=== PATIENT | male | born 1985 | race Caucasian/White ===

== ENCOUNTER 2016-09-30 18:16 | Emergency (ER) | payer BC ==
[~2016-09-30] VITALS: Ht 193 cm; Wt 108.1 kg
[2016-09-30] MEDS ORDERED: ONDANSETRON 2MG/ML, 2ML IVPush ONE (18:30)
[2016-09-30] MEDS ORDERED: SODIUM CHLORIDE FLUSH 10ML SYR IVF ONE (18:30)
[2016-09-30] MEDS ORDERED: SODIUM CHLORIDE 0.9% 1,000ML IVBOLUS ONE (18:30)
[2016-09-30] MEDS ORDERED: EPINEPHRINE 1 MG/ML, 1ML ONE (18:52)
[2016-09-30] MEDS ORDERED: FAMOTIDINE 20 MG/2 ML IVPush ONE (19:00)
[2016-09-30] MEDS ORDERED: MORPHINE SULFATE 4 MG/ML, 1ML IVPush PRN (19:00)
[2016-09-30] MEDS ORDERED: EPINEPHRINE 1 MG/ML, 1ML SQ ONE (19:00)
[2016-09-30] MEDS ORDERED: DIPHENHYDRAMINE 50 MG/ML, 1ML IVPush ONE (19:00)
[2016-09-30] MEDS ORDERED: methylPREDNISolone SOD SUCC 125 MG/2 ML IVPush ONE (19:00)
[2016-09-30] MEDS ORDERED: ONDANSETRON 2MG/ML, 2ML ONE (19:06)
[2016-09-30] MEDS ORDERED: DIPHENHYDRAMINE 50 MG/ML, 1ML ONE (19:06)
[2016-09-30] MEDS ORDERED: FAMOTIDINE 20 MG/2 ML ONE (19:06)
[2016-09-30] MEDS ORDERED: methylPREDNISolone SOD SUCC 125 MG/2 ML ONE (19:06)
[2016-09-30 19:14] LABS: BLOOD UREA NITROGEN 15 mg/dL (7-18)
[2016-09-30 19:17] LABS: ASPARTATE AMINO TRANSFERASE 40 U/L (15-37)
[2016-09-30] MEDS ORDERED: MIRT30TA PO (19:22)
[2016-09-30] MEDS ORDERED: VENL150C PO (19:22)
[2016-09-30] MEDS ORDERED: CLON2TAB PO (19:22)
[2016-09-30] MEDS ORDERED: TIZA4CAP2 PO (19:22)
[2016-09-30] MEDS ORDERED: IBUP800T PO (19:23)
[2016-09-30] MEDS ORDERED: MORPHINE SULFATE 4 MG/ML, 1ML ONE (19:55)
[2016-09-30] MEDS ORDERED: METOCLOPRAMIDE 5 MG/ML, 2ML ONE (20:11)
[2016-09-30] MEDS ORDERED: METOCLOPRAMIDE 5 MG/ML, 2ML IVPush ONE (20:30)
[2016-09-30] MEDS ORDERED: OMNIPAQUE 350 MG/ML, 100ML BOTTLE ONE (20:39)
[2016-09-30 21:58] VITALS: BP 165/98
== END 2016-09-30 22:01 | disposition home or self-care (01) ==
LOC: ED 21:07
DX: R10.32 Left lower quadrant pain (principal); L20.9 Atopic dermatitis, unspecified; Z90.49 Acquired absence of other specified parts of digestive tract; Z90.89 Acquired absence of other organs; Z88.8 Allergy status to other drugs, medicaments and biological substances; Z88.6 Allergy status to analgesic agent
CPT/HCPCS: 36415; 74020; 74177; 80053; 81003; 83690; 85025; 96361; 96372; 96374; 96375; 99285; J0171; J1200; J2405; J2765; J2930; J7030; Q9967; S0028

== ENCOUNTER 2016-12-11 14:29 | Emergency (ER) | payer BC, OTHER ==
[~2016-12-11] VITALS: Ht 193 cm; Wt 105.4 kg
[~2016-12-11 14:29] MED LIST: CLON2TAB PO; IBUP800T PO; MIRT30TA PO; TIZA4CAP2 PO; VENL150C PO
[2016-12-11] MEDS ORDERED: LIDOCAINE 1%, 20ML ONE (15:24)
[2016-12-11] MEDS ORDERED: LIDOCAINE 1%, 20ML SQ ONE (15:30)
[2016-12-11] MEDS ORDERED: SODIUM CHLORIDE 0.9% 1,000ML IVBOLUS ONE (15:30)
[2016-12-11] MEDS ORDERED: SODIUM CHLORIDE FLUSH 10ML SYR IVF ONE (15:30)
[2016-12-11 15:39] LABS: HEMATOCRIT 46.6 % (39.2-51.8); HEMOGLOBIN 15.3 g/dL (13.7-18.0); WHITE BLOOD COUNT 6.6 x10^3/uL (3.4-10)
[2016-12-11 15:45] LABS: BLOOD UREA NITROGEN 12 mg/dL (7-18)
[2016-12-11] MEDS ORDERED: BACITRACIN ZINC OINT 500U/GM, 0.9 GM ONE (17:17)
[2016-12-11 17:37] VITALS: BP 123/80
== END 2016-12-11 17:40 | disposition home or self-care (01) ==
LOC: ED 16:06
DX: S01.81XA Laceration without foreign body of other part of head, initial encounter (principal); S81.011A Laceration without foreign body, right knee, initial encounter; E86.0 Dehydration; A08.4 Viral intestinal infection, unspecified; R55 Syncope and collapse; Z90.49 Acquired absence of other specified parts of digestive tract; Z88.8 Allergy status to other drugs, medicaments and biological substances; Z88.5 Allergy status to narcotic agent; X58.XXXA Exposure to other specified factors, initial encounter; Y93.89 Activity, other specified; Y92.89 Other specified places as the place of occurrence of the external cause; Y99.8 Other external cause status
CPT/HCPCS: 12031; 36415; 71010; 73564; 73610; 80048; 82040; 82962; 85025; 93005; 96360; 99285; J7030

== ENCOUNTER 2016-12-16 13:45 | Emergency (ER) | payer OTHER ==
[~2016-12-16] VITALS: Ht 193 cm; Wt 105.8 kg
[2016-12-16] MEDS ORDERED: EPINEPHRINE 1 MG/ML, 1ML ONE (13:59)
[2016-12-16] MEDS ORDERED: DIPHENHYDRAMINE 50 MG/ML, 1ML ONE (14:12)
[2016-12-16] MEDS ORDERED: SODIUM CHLORIDE FLUSH 10ML SYR IVF ONE (14:30)
[2016-12-16] MEDS ORDERED: DIPHENHYDRAMINE 50 MG/ML, 1ML IVPush ONE (14:30)
[2016-12-16 15:29] VITALS: BP 134/99
== END 2016-12-16 16:02 | disposition home or self-care (01) ==
LOC: ED 14:52
DX: T78.40XA Allergy, unspecified, initial encounter (principal); Z90.49 Acquired absence of other specified parts of digestive tract
CPT/HCPCS: 96374; 99284; J1200

== ENCOUNTER 2017-07-05 12:12 | Inpatient (IN) | payer BC ==
[~2017-07-05] VITALS: Ht 193 cm; Wt 112.3 kg
[~2017-07-05 12:12] MED LIST changes: +IBUP-1223 PO; -IBUP800T PO
[2017-07-05] MEDS ORDERED: DEXAMETHASONE 4 MG/ML, 1ML IVPush ONE (14:30)
[2017-07-05] MEDS ORDERED: ACETAMINOPHEN 500 MG TABLET PO ONE (14:30)
[2017-07-05] MEDS ORDERED: ALBUTEROL/IPRATROPIUM 2.5MG/0.5MG, 3 ML NPPB ONE (14:30)
[2017-07-05] MEDS ORDERED: SODIUM CHLORIDE 0.9% 1,000ML IVBOLUS ONE (14:30)
[2017-07-05] MEDS ORDERED: ACETAMINOPHEN 500 MG TABLET ONE (14:35)
[2017-07-05] MEDS ORDERED: DEXAMETHASONE 4 MG/ML, 5ML ONE (14:36)
[2017-07-05 15:02] LABS: BASOPHILS # (AUTO) 0.02 x10^3/uL (0-0.1); BASOPHILS % (AUTO) 0 % (0-1); EOSINOPHILS # (AUTO) 0.22 x10^3/uL (0-0.4); EOSINOPHILS % (AUTO) 3 % (1-7); LYMPHOCYTES # (AUTO) 0.85 x10^3/uL (1-3.4); LYMPHOCYTES % (AUTO) 12 % (22-44); MD NO; MEAN CORPUSCULAR HEMOGLOBIN 29.4 pg (27.5-34.5); MEAN CORPUSCULAR HGB CONC 34.2 g/dL (33.2-36.2); MEAN CORPUSCULAR VOLUME 86.1 fL (81-97); MEAN PLATELET VOLUME 7.7 fL (7.4-10.4); MONOCYTES # (AUTO) 0.62 x10^3/uL (0.2-0.8); MONOCYTES % (AUTO) 9 % (2-9); NEUTROPHILS # (AUTO) 5.38 x10^3/uL (1.8-6.8); NEUTROPHILS % (AUTO) 76 % (42-75); PLATELET COUNT 274 x10^3/uL (130-400); RED BLOOD COUNT 5.05 x10^6/uL (4.38-5.82); RED CELL DISTRIBUTION WIDTH 13.1 % (9.4-14.8)
[2017-07-05] MEDS ORDERED: ALBUTEROL/IPRATROPIUM 2.5MG/0.5MG, 3 ML ONE (15:06)
[2017-07-05 15:14] LABS: ANION GAP 8 mmol/L (5-15); CALCIUM 8.8 mg/dL (8.5-10.1); CHLORIDE 105 mmol/L (98-107)
[2017-07-05 15:15] LABS: CREATININE 1.12 mg/dL (0.7-1.3)
[2017-07-05 16:41] LABS: RAPID INFLUENZA A Negative (Negative); RAPID INFLUENZA B Negative (Negative)
[2017-07-05] MEDS ORDERED: TIZA6CAP PO (16:43)
[2017-07-05] MEDS ORDERED: OXYC-307 PO (16:43)
[2017-07-05] MEDS ORDERED: hydrALAzine 20 MG/ML, 1ML IVPush PRN (17:30)
[2017-07-05] MEDS ORDERED: TEMAZEPAM 15 MG CAPSULE PO PRN (17:30)
[2017-07-05] MEDS ORDERED: ACETAMINOPHEN 325 MG TABLET PO PRN (17:30)
[2017-07-05] MEDS ORDERED: ONDANSETRON 2MG/ML, 2ML IVPush PRN (17:30)
[2017-07-05] MEDS ORDERED: methylPREDNISolone SOD SUCC 125 MG/2 ML ONE (17:39)
[2017-07-05] MEDS ORDERED: CEFTRIAXONE PMX 1GM/50ML 50 ML ONE (17:39)
[2017-07-05] MEDS: methylPREDNISolone SOD SUCC 125 MG/2 ML IVPush SCH (17:42)
[2017-07-05] MEDS ORDERED: CEFTRIAXONE PMX 2GM/50ML 50 ML ONE (17:43)
[2017-07-05] MEDS: CEFTRIAXONE PMX 2GM/50ML 50 ML IV SCH (17:44)
[2017-07-05] MEDS: AZITHROMYCIN 500 MG in SODIUM CHLORIDE 0.9% 250 ML IV SCH (18:13)
[2017-07-05 18:40] VITALS: BP 113/58
[2017-07-05] MEDS: MIRTAZAPINE 15 MG TABLET PO SCH (19:38)
[2017-07-05] MEDS: SODIUM CHLORIDE 0.9% 1,000 ML IV SCH (19:38)
[2017-07-05 20:00] VITALS: BP 113/58
[2017-07-05] MEDS ORDERED: TIZANIDINE 4MG TABLET PO SCH (21:00)
[2017-07-06] MEDS: SODIUM CHLORIDE 0.9% 1,000 ML IV SCH ×3 (01:44→21:15)
[2017-07-06] MEDS ORDERED: ALBUTEROL/IPRATROPIUM 2.5MG/0.5MG, 3 ML NPPB PRN (05:00)
[2017-07-06] MEDS: methylPREDNISolone SOD SUCC 125 MG/2 ML IVPush SCH (05:10)
[2017-07-06 05:40] LABS: BASOPHILS # (AUTO) 0.03 x10^3/uL (0-0.1); BASOPHILS % (AUTO) 0 % (0-1); EOSINOPHILS % (AUTO) 0 % (1-7); LYMPHOCYTES # (AUTO) 0.59 x10^3/uL (1-3.4); LYMPHOCYTES % (AUTO) 6 % (22-44); MD NO; MEAN CORPUSCULAR HGB CONC 33.3 g/dL (33.2-36.2); MEAN PLATELET VOLUME 7.5 fL (7.4-10.4); MONOCYTES # (AUTO) 0.24 x10^3/uL (0.2-0.8); MONOCYTES % (AUTO) 3 % (2-9); NEUTROPHILS # (AUTO) 8.59 x10^3/uL (1.8-6.8); NEUTROPHILS % (AUTO) 91 % (42-75); PLATELET COUNT 298 x10^3/uL (130-400); RED BLOOD COUNT 5.42 x10^6/uL (4.38-5.82); RED CELL DISTRIBUTION WIDTH 12.8 % (9.4-14.8)
[2017-07-06 05:48] LABS: CHLORIDE 105 mmol/L (98-107)
[2017-07-06 05:55] LABS: ALANINE AMINOTRANSFERASE 144 U/L (12-78); ALBUMIN 4.1 g/dL (3.4-5.0); ALKALINE PHOSPHATASE 71 U/L (45-117); ANION GAP 8 mmol/L (5-15); BILIRUBIN,TOTAL 0.4 mg/dL (0.2-1.0); CALCIUM 9.4 mg/dL (8.5-10.1); CREATININE 1.02 mg/dL (0.7-1.3); TOTAL PROTEIN 8.7 g/dL (6.4-8.2)
[2017-07-06 07:29] VITALS: BP 143/93
[2017-07-06] MEDS: VENLAFAXINE HCL 150 MG HOMEMEDPO SCH (08:08)
[2017-07-06] MEDS: HYDROcodone/APAP 5/325 TABLET PO PRN ×2 (08:13→15:01)
[2017-07-06] MEDS ORDERED: MAGNESIUM SULFATE PMX 2GM/50ML 50 ML IV ONE (09:00)
[2017-07-06] MEDS: morphine SULFATE 10 MG/ML, 1ML IVPush PRN ×2 (11:04→19:28)
[2017-07-06 12:18] VITALS: BP 150/86
[2017-07-06] MEDS: POTASSIUM PHOSPHATE 44 MEQ in SODIUM CHLORIDE 0.9% 500 ML IV SCH ×2 (15:01→21:15)
[2017-07-06] MEDS: ALBUTEROL/IPRATROPIUM 2.5MG/0.5MG, 3 ML NPPB SCH ×2 (15:30→18:27)
[2017-07-06] MEDS ORDERED: SODIUM CHLORIDE INHALATION 3%, 4 ML NPPB ONE (16:00)
[2017-07-06] MEDS: PANTOPROZOLE 40MG TABLET PO SCH (16:27)
[2017-07-06] MEDS: CEFTRIAXONE PMX 2GM/50ML 50 ML IV SCH (17:42)
[2017-07-06] MEDS: TIZANIDINE 4MG TABLET PO SCH ×2 (17:45→21:14)
[2017-07-06] MEDS: AZITHROMYCIN 500 MG in SODIUM CHLORIDE 0.9% 250 ML IV SCH (18:45)
[2017-07-06 19:15] VITALS: BP 108/61
[2017-07-06] MEDS: MIRTAZAPINE 15 MG TABLET PO SCH (21:14)
[2017-07-07 01:25] VITALS: BP 128/80
[2017-07-07] MEDS: SODIUM CHLORIDE 0.9% 1,000 ML IV SCH ×3 (04:25→20:05)
[2017-07-07 05:38] LABS: CHLORIDE 107 mmol/L (98-107)
[2017-07-07 05:50] LABS: ALANINE AMINOTRANSFERASE 81 U/L (12-78); ALBUMIN 3.3 g/dL (3.4-5.0); ALKALINE PHOSPHATASE 54 U/L (45-117); ANION GAP 9 mmol/L (5-15); BILIRUBIN,TOTAL 0.1 mg/dL (0.2-1.0); CALCIUM 8.3 mg/dL (8.5-10.1); CREATININE 0.85 mg/dL (0.7-1.3); TOTAL PROTEIN 6.8 g/dL (6.4-8.2)
[2017-07-07] MEDS: ALBUTEROL/IPRATROPIUM 2.5MG/0.5MG, 3 ML NPPB SCH ×4 (07:00→19:30)
[2017-07-07 08:10] VITALS: BP 130/84
[2017-07-07] MEDS: VENLAFAXINE HCL 150 MG HOMEMEDPO SCH (09:00)
[2017-07-07] MEDS: PANTOPROZOLE 40MG TABLET PO SCH (10:16)
[2017-07-07] MEDS: TIZANIDINE 4MG TABLET PO SCH ×3 (10:16→21:00)
[2017-07-07] MEDS: HYDROcodone/APAP 5/325 TABLET PO PRN ×3 (10:16→19:55)
[2017-07-07] MEDS ORDERED: GUAIFENESIN ER 600 MG TABLET ONE (11:55)
[2017-07-07] MEDS ORDERED: MORPHINE SULFATE 4 MG/ML, 1ML ONE (12:07)
[2017-07-07] MEDS: morphine SULFATE 10 MG/ML, 1ML IVPush PRN ×3 (12:10→22:48)
[2017-07-07] MEDS: GUAIFENESIN 200 MG TABLET PO SCH ×3 (12:11→21:00)
[2017-07-07 14:00] VITALS: BP 142/94
[2017-07-07] MEDS ORDERED: CEFTRIAXONE 2 GM in SODIUM CHLORIDE 0.9% 50 ML IV SCH (17:30)
[2017-07-07 19:02] VITALS: BP 123/78
[2017-07-07] MEDS: AZITHROMYCIN 500 MG in SODIUM CHLORIDE 0.9% 250 ML IV SCH (20:05)
[2017-07-07 20:40] LABS: MICROSCOPIC AUTO
[2017-07-07 20:45] LABS: CULTURE INDICATED? NO
[2017-07-07] MEDS: MIRTAZAPINE 15 MG TABLET PO SCH (21:00)
[2017-07-08 01:20] VITALS: BP 122/77
[2017-07-08] MEDS: SODIUM CHLORIDE 0.9% 1,000 ML IV SCH ×4 (03:14→22:46)
[2017-07-08] MEDS: HYDROcodone/APAP 5/325 TABLET PO PRN ×3 (03:28→18:10)
[2017-07-08] MEDS: morphine SULFATE 10 MG/ML, 1ML IVPush PRN ×4 (06:09→21:27)
[2017-07-08] MEDS: ALBUTEROL/IPRATROPIUM 2.5MG/0.5MG, 3 ML NPPB SCH ×4 (07:10→20:00)
[2017-07-08] MEDS: VENLAFAXINE HCL 150 MG HOMEMEDPO SCH (08:29)
[2017-07-08 08:30] VITALS: BP 135/83
[2017-07-08] MEDS: TIZANIDINE 4MG TABLET PO SCH ×3 (08:30→20:12)
[2017-07-08] MEDS: GUAIFENESIN 200 MG TABLET PO SCH ×3 (08:30→20:11)
[2017-07-08] MEDS: PANTOPROZOLE 40MG TABLET PO SCH (08:31)
[2017-07-08 14:30] VITALS: BP 175/117
[2017-07-08] MEDS: CEFTRIAXONE 2 GM in DEXTROSE 5% 50 ML IV SCH (18:10)
[2017-07-08] MEDS: AZITHROMYCIN 500 MG in SODIUM CHLORIDE 0.9% 250 ML IV SCH (20:11)
[2017-07-08 20:12] VITALS: BP 131/92
[2017-07-08] MEDS: MIRTAZAPINE 15 MG TABLET PO SCH (20:12)
[2017-07-09 02:52] VITALS: BP 135/85
[2017-07-09] MEDS: SODIUM CHLORIDE 0.9% 1,000 ML IV SCH ×2 (05:25→13:31)
[2017-07-09] MEDS: ALBUTEROL/IPRATROPIUM 2.5MG/0.5MG, 3 ML NPPB SCH (06:44)
[2017-07-09 08:30] VITALS: BP 155/73
[2017-07-09] MEDS: VENLAFAXINE HCL 150 MG HOMEMEDPO SCH (09:00)
[2017-07-09] MEDS: morphine SULFATE 10 MG/ML, 1ML IVPush PRN ×2 (09:09→13:30)
[2017-07-09] MEDS: GUAIFENESIN 200 MG TABLET PO SCH ×3 (09:12→20:13)
[2017-07-09] MEDS: TIZANIDINE 4MG TABLET PO SCH ×3 (09:13→20:13)
[2017-07-09] MEDS: PANTOPROZOLE 40MG TABLET PO SCH (09:14)
[2017-07-09] MEDS: IBUPROFEN 200 MG TABLET PO SCH ×3 (11:11→23:31)
[2017-07-09] MEDS: HYDROcodone/APAP 5/325 TABLET PO PRN ×2 (11:12→15:20)
[2017-07-09 14:30] VITALS: BP 156/91
[2017-07-09] MEDS ORDERED: HYDROcodone/APAP 5/325 TABLET PO PRN (17:00)
[2017-07-09] MEDS ORDERED: MORPHINE SULFATE 4 MG/ML, 1ML IVPush PRN (17:00)
[2017-07-09] MEDS: CEFTRIAXONE 2 GM in DEXTROSE 5% 50 ML IV SCH (17:32)
[2017-07-09] MEDS: CALCIUM CARBONATE 500 MG TAB.CHEW PO PRN ×2 (17:59→20:25)
[2017-07-09 18:50] VITALS: BP 163/81
[2017-07-09 19:55] VITALS: BP 153/100
[2017-07-09] MEDS: MIRTAZAPINE 15 MG TABLET PO SCH (20:14)
[2017-07-09] MEDS: AZITHROMYCIN 500 MG in SODIUM CHLORIDE 0.9% 250 ML IV SCH (20:15)
[2017-07-10 01:14] VITALS: BP 147/92
[2017-07-10] MEDS: IBUPROFEN 200 MG TABLET PO SCH (05:22)
[2017-07-10] MEDS ORDERED: ALBUTEROL/IPRATROPIUM 2.5MG/0.5MG, 3 ML NPPB SCH (07:00)
[2017-07-10] MEDS: VENLAFAXINE HCL 150 MG HOMEMEDPO SCH (09:00)
[2017-07-10] MEDS: TIZANIDINE 4MG TABLET PO SCH (09:00)
[2017-07-10 09:12] VITALS: BP_SYST 176; BP_SYST 190; BP_DIAS 121; BP_DIAS 122
[2017-07-10] MEDS: PANTOPROZOLE 40MG TABLET PO SCH (09:25)
[2017-07-10] MEDS: GUAIFENESIN 200 MG TABLET PO SCH (09:25)
[2017-07-10] MEDS ORDERED: GUAI200T3 PO (09:50)
[2017-07-10] MEDS ORDERED: IBUP-1484 PO (09:50)
[2017-07-10] MEDS ORDERED: CEFD300C37 PO (09:50)
[2017-07-10] MEDS ORDERED: AZIT500T PO (09:50)
[2017-07-10] MEDS ORDERED: CALC200T24 PO (09:50)
[2017-07-10 10:54] VITALS: BP_SYST 155; BP_SYST 159; BP_DIAS 96; BP_DIAS 99
== END 2017-07-10 14:04 | disposition home or self-care (01) | DRG 871 ==
LOC: ED 16:26 → SUATTDRO 16:51 → EDIP 17:07 → 3NE 18:45
PROVIDERS: ADMIT Internal Medicine; ATTEND Internal Medicine
DX: A41.9 Sepsis, unspecified organism (principal); J15.9 Unspecified bacterial pneumonia; J96.01 Acute respiratory failure with hypoxia; E83.39 Other disorders of phosphorus metabolism; B34.9 Viral infection, unspecified; E83.42 Hypomagnesemia; F41.1 Generalized anxiety disorder; J45.909 Unspecified asthma, uncomplicated; K21.9 Gastro-esophageal reflux disease without esophagitis; F32.9 Major depressive disorder, single episode, unspecified; G89.29 Other chronic pain; M54.9 Dorsalgia, unspecified; R73.9 Hyperglycemia, unspecified; Z90.49 Acquired absence of other specified parts of digestive tract
CPT/HCPCS: 36415; 71046; 80048; 80053; 81001; 83735; 84100; 85025; 87040; 87070; 87205; 87400; 93005; 94640; 96361; 96374; J0456; J0696; J1100; J2405; J7620; J0360; J2270; J2930; J3475; J7030; J7040; J7050

== ENCOUNTER 2017-11-10 06:26 | Emergency (ER) | payer BC ==
[~2017-11-10] VITALS: Ht 193 cm; Wt 109.8 kg
[~2017-11-10 06:26] MED LIST changes: +AZIT500T PO; +CALC200T24 PO; +CEFD300C37 PO; +GUAI200T3 PO; +IBUP-1484 PO; +OXYC-307 PO; +TIZA6CAP PO
[2017-11-10] MEDS ORDERED: METHOCARBAMOL 750 MG TABLET PO ONE (07:00)
[2017-11-10] MEDS ORDERED: SODIUM CHLORIDE FLUSH 10ML SYR IVF ONE (07:00)
[2017-11-10] MEDS ORDERED: DIPHENHYDRAMINE 50 MG/ML, 1ML IVPush ONE (07:00)
[2017-11-10] MEDS ORDERED: METOCLOPRAMIDE 5 MG/ML, 2ML IVPush ONE (07:00)
[2017-11-10] MEDS ORDERED: SODIUM CHLORIDE 0.9% 1,000ML IVBOLUS ONE (07:00)
[2017-11-10 07:07] LABS: MICROSCOPIC NOT IND
[2017-11-10 07:18] LABS: CULTURE INDICATED? NO
[2017-11-10 07:25] LABS: BASOPHILS # (AUTO) 0.03 x10^3/uL (0-0.1); BASOPHILS % (AUTO) 0 % (0-1); EOSINOPHILS # (AUTO) 0.17 x10^3/uL (0-0.4); EOSINOPHILS % (AUTO) 2 % (1-7); LYMPHOCYTES # (AUTO) 2.36 x10^3/uL (1-3.4); LYMPHOCYTES % (AUTO) 34 % (22-44); MD NO; MEAN CORPUSCULAR HEMOGLOBIN 29.7 pg (27.5-34.5); MEAN CORPUSCULAR HGB CONC 33.8 g/dL (33.2-36.2); MEAN CORPUSCULAR VOLUME 87.9 fL (81-97); MEAN PLATELET VOLUME 7.1 fL (7.4-10.4); MONOCYTES # (AUTO) 0.51 x10^3/uL (0.2-0.8); MONOCYTES % (AUTO) 7 % (2-9); NEUTROPHILS # (AUTO) 3.91 x10^3/uL (1.8-6.8); NEUTROPHILS % (AUTO) 56 % (42-75); PLATELET COUNT 393 x10^3/uL (130-400); RED BLOOD COUNT 5.28 x10^6/uL (4.38-5.82)
[2017-11-10] MEDS ORDERED: METHOCARBAMOL 750 MG TABLET ONE (07:32)
[2017-11-10] MEDS ORDERED: DIPHENHYDRAMINE 50 MG/ML, 1ML ONE (07:32)
[2017-11-10] MEDS ORDERED: METOCLOPRAMIDE 5 MG/ML, 2ML ONE (07:32)
[2017-11-10 07:33] LABS: ALANINE AMINOTRANSFERASE 183 U/L (12-78); ALBUMIN 4.6 g/dL (3.4-5.0); ANION GAP 8 mmol/L (5-15); CALCIUM 9.3 mg/dL (8.5-10.1); CHLORIDE 105 mmol/L (98-107); CREATININE 0.92 mg/dL (0.7-1.3)
[2017-11-10 07:35] LABS: ALKALINE PHOSPHATASE 58 U/L (45-117); BILIRUBIN,TOTAL 0.6 mg/dL (0.2-1.0); TOTAL PROTEIN 8.4 g/dL (6.4-8.2)
[2017-11-10 08:40] VITALS: BP 125/74
== END 2017-11-10 09:25 | disposition home or self-care (01) ==
LOC: ED 09:11
DX: R11.2 Nausea with vomiting, unspecified (principal); M62.830 Muscle spasm of back; J45.909 Unspecified asthma, uncomplicated; F32.9 Major depressive disorder, single episode, unspecified; F41.1 Generalized anxiety disorder; Z90.49 Acquired absence of other specified parts of digestive tract; Z90.89 Acquired absence of other organs; Z88.2 Allergy status to sulfonamides; Z88.1 Allergy status to other antibiotic agents; Z88.6 Allergy status to analgesic agent
CPT/HCPCS: 36415; 71045; 80053; 80074; 81003; 83690; 85025; 96361; 96374; 96375; 99285; J1200; J2765; J7030

== ENCOUNTER 2017-12-10 17:39 | Observation (INO) | payer BC ==
[~2017-12-10] VITALS: Ht 193 cm; Wt 111.1 kg
[2017-12-10] MEDS ORDERED: HYDROmorphone 1 MG/ML, 1ML IM STA (18:20)
[2017-12-10] MEDS ORDERED: DIAZEPAM 5 MG TABLET PO ONE (18:30)
[2017-12-10] MEDS ORDERED: DIAZEPAM 5 MG TABLET ONE (18:42)
[2017-12-10] MEDS ORDERED: HYDROmorphone 2 MG/ML, 1ML ONE ×2 (18:42→21:24)
[2017-12-10] MEDS ORDERED: MORPHINE PO (19:22)
[2017-12-10] MEDS ORDERED: IBUP-1223 PO (19:22)
[2017-12-10] MEDS ORDERED: OXYC15TA PO (19:22)
[2017-12-10] MEDS ORDERED: HYDROmorphone 1 MG/ML, 1ML IM ONE (19:30)
[2017-12-10 21:00] VITALS: BP 134/87
[2017-12-10] MEDS ORDERED: ACETAMINOPHEN 325 MG TABLET PO PRN (22:30)
[2017-12-10] MEDS ORDERED: LIDODERM 5% PATCH TD PRN (22:30)
[2017-12-10] MEDS ORDERED: methylPREDNISolone 4mg DOSE PACK ONE (22:34)
[2017-12-10] MEDS: GABAPENTIN 300 MG CAPSULE PO SCH (22:56)
[2017-12-10] MEDS: TIZANIDINE 4MG TABLET PO SCH (22:56)
[2017-12-10] MEDS: LIDODERM 5% PATCH TD SCH (22:56)
[2017-12-10] MEDS: HEPARIN 5,000 UNITS/ML, 1ML SQ SCH (22:57)
[2017-12-10 23:09] LABS: BASOPHILS # (AUTO) 0.04 x10^3/uL (0-0.1); BASOPHILS % (AUTO) 0 % (0-1); EOSINOPHILS # (AUTO) 0.24 x10^3/uL (0-0.4); EOSINOPHILS % (AUTO) 3 % (1-7); LYMPHOCYTES # (AUTO) 1.59 x10^3/uL (1-3.4); LYMPHOCYTES % (AUTO) 18 % (22-44); MD NO; MEAN CORPUSCULAR HEMOGLOBIN 29.7 pg (27.5-34.5); MEAN CORPUSCULAR HGB CONC 33.7 g/dL (33.2-36.2); MEAN CORPUSCULAR VOLUME 88.1 fL (81-97); MEAN PLATELET VOLUME 7.5 fL (7.4-10.4); MONOCYTES % (AUTO) 6 % (2-9); NEUTROPHILS # (AUTO) 6.64 x10^3/uL (1.8-6.8); NEUTROPHILS % (AUTO) 74 % (42-75); PLATELET COUNT 310 x10^3/uL (130-400); RED BLOOD COUNT 4.98 x10^6/uL (4.38-5.82); RED CELL DISTRIBUTION WIDTH 12.6 % (9.4-14.8)
[2017-12-10 23:15] LABS: ALANINE AMINOTRANSFERASE 109 U/L (12-78); ALBUMIN 4.1 g/dL (3.4-5.0); ANION GAP 6 mmol/L (5-15); CALCIUM 9.6 mg/dL (8.5-10.1); CHLORIDE 106 mmol/L (98-107); CREATININE 0.69 mg/dL (0.7-1.3)
[2017-12-10 23:17] LABS: ALKALINE PHOSPHATASE 49 U/L (45-117); BILIRUBIN,TOTAL 0.4 mg/dL (0.2-1.0); TOTAL PROTEIN 7.8 g/dL (6.4-8.2)
[2017-12-11 00:37] VITALS: BP 108/68
[2017-12-11] MEDS: OXYcodone/APAP 10/325MG TABLET PO PRN ×2 (01:50→14:17)
[2017-12-11] MEDS: HEPARIN 5,000 UNITS/ML, 1ML SQ SCH ×3 (06:30→22:41)
[2017-12-11 07:31] VITALS: BP 189/78
[2017-12-11] MEDS: VENLAFAXINE 75 MG CAP ER PO SCH (09:00)
[2017-12-11] MEDS: GABAPENTIN 300 MG CAPSULE PO SCH ×3 (09:00→21:37)
[2017-12-11 09:14] VITALS: BP 168/87
[2017-12-11 10:03] LABS: MICROSCOPIC AUTO
[2017-12-11 10:13] LABS: AMPHETAMINE SCREEN, URINE Negative (Negative); BARBITURATE SCREEN, URINE Negative (Negative); BENZODIAZEPINE SCREEN, URINE Positive (Negative); CANNABINOID SCREEN, URINE Negative (Negative); COCAINE SCREEN, URINE Negative (Negative); METHADONE SCREEN, URINE Negative (Negative); OPIATE SCREEN, URINE Positive (Negative)
[2017-12-11 10:15] LABS: CULTURE INDICATED? NO
[2017-12-11] MEDS: ONDANSETRON 2MG/ML, 2ML IVPush PRN ×2 (12:25→15:59)
[2017-12-11] MEDS ORDERED: DIPHENHYDRAMINE 50 MG/ML, 1ML IVPush ONE (12:30)
[2017-12-11] MEDS ORDERED: MORPHINE SULFATE 4 MG/ML, 1ML IVPush ONE (12:30)
[2017-12-11 13:31] VITALS: BP 149/83
[2017-12-11] MEDS ORDERED: OMNIPAQUE 350 MG/ML, 100ML BOTTLE ONE (14:57)
[2017-12-11 18:57] VITALS: BP 108/55
[2017-12-11 19:11] LABS: ALBUMIN 4.2 g/dL (3.4-5.0)
[2017-12-11 19:13] LABS: BILIRUBIN, DIRECT 0.2 mg/dL (0.1-0.2); BILIRUBIN,INDIRECT 0.4 mg/dL (0.0-2.0); BILIRUBIN,TOTAL 0.6 mg/dL (0.2-1.0); TOTAL PROTEIN 8.3 g/dL (6.4-8.2)
[2017-12-11] MEDS: MIRTAZAPINE 15 MG TABLET PO SCH (21:37)
[2017-12-11] MEDS: TIZANIDINE 4MG TABLET PO SCH (21:37)
[2017-12-11] MEDS: ONDANSETRON ODT 4 MG PO PRN (21:37)
[2017-12-11] MEDS: LIDODERM 5% PATCH TD SCH (22:43)
[2017-12-12 03:29] VITALS: BP 123/69
[2017-12-12] MEDS: OXYcodone/APAP 10/325MG TABLET PO PRN (04:25)
[2017-12-12] MEDS: ONDANSETRON 2MG/ML, 2ML IVPush PRN ×2 (04:35→09:10)
[2017-12-12] MEDS: HEPARIN 5,000 UNITS/ML, 1ML SQ SCH ×3 (06:31→23:03)
[2017-12-12 06:40] VITALS: BP 116/76
[2017-12-12] MEDS: GABAPENTIN 300 MG CAPSULE PO SCH ×3 (09:08→20:36)
[2017-12-12] MEDS: VENLAFAXINE 75 MG CAP ER PO SCH (09:08)
[2017-12-12 10:45] LABS: CHOLESTEROL, TOTAL 315 mg/dL (140-239); TRIGLYCERIDES 424 mg/dL (50-200)
[2017-12-12 10:47] LABS: HDL CHOL % 11 % (26-37); HDL CHOLESTEROL (DIRECT) 35 mg/dL (40-60)
[2017-12-12 13:07] VITALS: BP 153/80
[2017-12-12] MEDS: ONDANSETRON ODT 4 MG PO PRN ×2 (13:24→20:37)
[2017-12-12 15:54] VITALS: BP 137/76
[2017-12-12] MEDS ORDERED: BACLOFEN 10 MG TABLET PO PRN (17:00)
[2017-12-12] MEDS: OXYcodone 5 MG/5 ML ORAL.SOL UDC PO PRN (17:23)
[2017-12-12 19:00] VITALS: BP 111/66
[2017-12-12] MEDS: LIDODERM 5% PATCH TD SCH (20:37)
[2017-12-12] MEDS: MIRTAZAPINE 15 MG TABLET PO SCH (20:37)
[2017-12-12] MEDS ORDERED: CHLORHEXIDINE 15 ML BOTTLE MM ONE (22:00)
[2017-12-13 01:33] VITALS: BP 133/85
[2017-12-13] MEDS: OXYcodone 5 MG/5 ML ORAL.SOL UDC PO PRN ×2 (01:34→09:34)
[2017-12-13] MEDS: ONDANSETRON ODT 4 MG PO PRN (03:12)
[2017-12-13] MEDS: HEPARIN 5,000 UNITS/ML, 1ML SQ SCH (06:33)
[2017-12-13 07:42] VITALS: BP 142/92
[2017-12-13] MEDS: VENLAFAXINE 75 MG CAP ER PO SCH (07:49)
[2017-12-13] MEDS: GABAPENTIN 300 MG CAPSULE PO SCH (07:49)
[2017-12-13 10:13] LABS: ALANINE AMINOTRANSFERASE 179 U/L (12-78); ALBUMIN 4.1 g/dL (3.4-5.0)
[2017-12-13 10:15] LABS: ALKALINE PHOSPHATASE 51 U/L (45-117); BILIRUBIN, DIRECT < 0.1 mg/dL (0.1-0.2); BILIRUBIN,INDIRECT 0.2 mg/dL (0.0-2.0); BILIRUBIN,TOTAL 0.3 mg/dL (0.2-1.0)
[2017-12-13] MEDS ORDERED: BACL-19 PO (12:10)
[2017-12-13] MEDS ORDERED: ATOR40TA78 PO (12:10)
[2017-12-13] MEDS ORDERED: OXYC5SOL8 PO (12:11)
[2017-12-13] MEDS ORDERED: ATORVASTATIN 40 MG TABLET PO SCH (21:00)
== END 2017-12-13 12:52 | disposition home or self-care (01) ==
LOC: ED 20:20 → INTOOBSV 21:27 → EDIP 21:27 → 3NE 22:18
PROVIDERS: ADMIT Hospitalist; ATTEND Hospitalist
DX: M54.5 Low back pain (principal); R10.12 Left upper quadrant pain; F11.20 Opioid dependence, uncomplicated; K76.0 Fatty (change of) liver, not elsewhere classified; J45.909 Unspecified asthma, uncomplicated; F41.1 Generalized anxiety disorder; F32.9 Major depressive disorder, single episode, unspecified; E78.00 Pure hypercholesterolemia, unspecified; E78.1 Pure hyperglyceridemia; G89.29 Other chronic pain; M41.9 Scoliosis, unspecified; Z86.61 Personal history of infections of the central nervous system; W10.9XXA Fall (on) (from) unspecified stairs and steps, initial encounter; Y93.89 Activity, other specified; Y92.89 Other specified places as the place of occurrence of the external cause; Y99.8 Other external cause status
CPT/HCPCS: 36415; 72072; 72110; 72148; 74170; 80053; 80061; 80074; 80076; 80307; 81001; 85025; 96372; 96374; 96375; 96376; 97165; 99285; G0378; J1170; J1200; J1644; J2405; J7509; Q0162; Q9967

== ENCOUNTER 2018-02-12 11:29 | Emergency (ER) | payer BC, OTHER ==
[~2018-02-12] VITALS: Ht 193 cm; Wt 98.2 kg
[~2018-02-12 11:29] MED LIST changes: +ATOR40TA78 PO; +BACL-19 PO; +MORPHINE PO; +OXYC15TA PO; +OXYC5SOL8 PO
[2018-02-12 12:25] LABS: BASOPHILS # (AUTO) 0.03 x10^3/uL (0-0.1); BASOPHILS % (AUTO) 0 % (0-1); EOSINOPHILS # (AUTO) 0.15 x10^3/uL (0-0.4); EOSINOPHILS % (AUTO) 2 % (1-7); LYMPHOCYTES # (AUTO) 2.26 x10^3/uL (1-3.4); LYMPHOCYTES % (AUTO) 24 % (22-44); MD NO; MEAN CORPUSCULAR HEMOGLOBIN 30.5 pg (27.5-34.5); MEAN CORPUSCULAR HGB CONC 34.2 g/dL (33.2-36.2); MEAN CORPUSCULAR VOLUME 89.2 fL (81-97); MEAN PLATELET VOLUME 7.1 fL (7.4-10.4); MONOCYTES % (AUTO) 7 % (2-9); NEUTROPHILS # (AUTO) 6.19 x10^3/uL (1.8-6.8); NEUTROPHILS % (AUTO) 67 % (42-75); PLATELET COUNT 385 x10^3/uL (130-400); RED BLOOD COUNT 5.38 x10^6/uL (4.38-5.82); RED CELL DISTRIBUTION WIDTH 12.5 % (9.4-14.8)
[2018-02-12 12:26] VITALS: BP 135/85
[2018-02-12] MEDS ORDERED: ONDANSETRON 2MG/ML, 2ML ONE (12:27)
[2018-02-12] MEDS ORDERED: IBUPROFEN 200 MG TABLET ONE (12:28)
[2018-02-12] MEDS ORDERED: MAALOX/HYOSCYAMINE/LIDOCAINE 45 ML BTL ONE (12:28)
[2018-02-12] MEDS ORDERED: FAMOTIDINE 20 MG/2 ML ONE (12:29)
[2018-02-12] MEDS ORDERED: LORazepam 2 MG/ML, 1ML ONE (12:29)
[2018-02-12] MEDS ORDERED: IBUPROFEN 200 MG TABLET PO ONE (12:30)
[2018-02-12] MEDS ORDERED: SODIUM CHLORIDE 0.9% 1,000ML IVBOLUS ONE (12:30)
[2018-02-12] MEDS ORDERED: LORazepam 2 MG/ML, 1ML IVPush ONE (12:30)
[2018-02-12] MEDS ORDERED: FAMOTIDINE 20 MG/2 ML IVP ONE (12:30)
[2018-02-12] MEDS ORDERED: ONDANSETRON 2MG/ML, 2ML IVPush ONE (12:30)
[2018-02-12] MEDS: MAALOX/HYOSCYAMINE/LIDOCAINE 45 ML BTL PO ONE ×2 (12:30→12:33)
[2018-02-12 12:35] LABS: ALANINE AMINOTRANSFERASE 77 U/L (12-78); ALBUMIN 4.2 g/dL (3.4-5.0); ANION GAP 8 mmol/L (5-15); CALCIUM 9.6 mg/dL (8.5-10.1); CHLORIDE 104 mmol/L (98-107); CREATININE 0.93 mg/dL (0.7-1.3)
[2018-02-12 12:37] LABS: ALKALINE PHOSPHATASE 52 U/L (45-117); BILIRUBIN,TOTAL 0.5 mg/dL (0.2-1.0); TOTAL PROTEIN 7.9 g/dL (6.4-8.2)
== END 2018-02-12 13:28 | disposition home or self-care (01) ==
LOC: ED 12:24
DX: F41.1 Generalized anxiety disorder (principal); F12.10 Cannabis abuse, uncomplicated
CPT/HCPCS: 36415; 71045; 80053; 83690; 85025; 93005; 96361; 96374; 96375; 99285; J2060; J2405; J7030; S0028

== ENCOUNTER 2018-06-08 22:58 | Emergency (ER) | payer SELFPAY ==
[~2018-06-08] VITALS: Ht 193 cm; Wt 101.0 kg
[2018-06-08 23:44] LABS: MICROSCOPIC AUTO
[2018-06-08 23:45] LABS: CULTURE INDICATED? NO
--- NOTE | 2018-06-08 23:55 | NUR ---
PT. TO ROOM FROM LOBBY.
--- NOTE | 2018-06-09 | NUR ---
TASK RN: PT REPORTS BILAT FLANK PAIN X JUNE W/ NEW ONSET N/T TO BILAT FEET. PT DENIES INCONTINENENCE/TRAUMA. PT AMBULATORY WITHOUT ASSISTANCE. MRI FORM FILLED AND FAXED TO DEPARTMENT. IV ESTABLISHED. PT UPDATED TO POC (MRI/RESULTS/RECHECK) AND DEMONSTRATES UNDERSTANDING.
[2018-06-09] MEDS ORDERED: HYDROcodone/APAP 5/325 TABLET PO ONE (00:30)
--- NOTE | 2018-06-09 00:38 | NUR ---
REPORT FROM BARRY SINGLETARY. LAB AT BEDSIDE. PT TO HAVE MRI.
[2018-06-09] MEDS ORDERED: HYDROcodone/APAP 5/325 TABLET ONE (00:43)
[2018-06-09] MEDS ORDERED: ZOLP-413 PO (00:49)
[2018-06-09 00:52] LABS: BASOPHILS # (AUTO) 0.05 x10^3/uL (0-0.1); BASOPHILS % (AUTO) 1 % (0-1); EOSINOPHILS % (AUTO) 4 % (1-7); HCT (SEDRATE) 48.1 % (39.2-51.8); LYMPHOCYTES # (AUTO) 1.88 x10^3/uL (1-3.4); LYMPHOCYTES % (AUTO) 23 % (22-44); MD NO; MEAN CORPUSCULAR HGB CONC 33.5 g/dL (33.2-36.2); MEAN CORPUSCULAR VOLUME 89.6 fL (81-97); MEAN PLATELET VOLUME 7.6 fL (7.4-10.4); MONOCYTES # (AUTO) 0.73 x10^3/uL (0.2-0.8); MONOCYTES % (AUTO) 9 % (2-9); NEUTROPHILS # (AUTO) 5.31 x10^3/uL (1.8-6.8); NEUTROPHILS % (AUTO) 64 % (42-75); PLATELET COUNT 353 x10^3/uL (130-400); RED BLOOD COUNT 5.37 x10^6/uL (4.38-5.82); RED CELL DISTRIBUTION WIDTH 14.1 % (9.4-14.8)
[2018-06-09 00:59] LABS: ALBUMIN 4.4 g/dL (3.4-5.0); ANION GAP 5 mmol/L (5-15); C-REACTIVE PROTEIN, QUANT 0.45 mg/dL (0.02-0.49); CALCIUM 9.2 mg/dL (8.5-10.1); CHLORIDE 107 mmol/L (98-107); CREATININE 1.08 mg/dL (0.7-1.3)
[2018-06-09] MEDS ORDERED: GADOBUTROL 10 MMOL/10 ML PFS ONE (01:28)
--- NOTE | 2018-06-09 01:59 | NUR ---
PT BACK FROM MRI COMPLAINING OF INCREASED PAIN. WAITING FOR ADDITIONAL ORDERS.
[2018-06-09] MEDS ORDERED: LORazepam 2 MG/ML, 1ML ONE (02:18)
--- NOTE | 2018-06-09 02:26 | NUR ---
PT RE MEDICATED. VSS. CALL LIGHT IN REACH
[2018-06-09] MEDS ORDERED: LORazepam 2 MG/ML, 1ML IVPush ONE (02:30)
[2018-06-09] MEDS ORDERED: LIDODERM 5% PATCH TD ONE ×2 (03:20→03:30)
[2018-06-09] MEDS ORDERED: NAPROXEN 500 MG TABLET ONE (03:20)
[2018-06-09] MEDS ORDERED: NAPROXEN 500 MG TABLET PO ONE (03:30)
--- NOTE | 2018-06-09 03:36 | NUR ---
TASK RN: Patient/Caregiver given discharge instructions and they have confirmed that they understand the instructions. Patient ambulatory with steady gait.
[2018-06-09 03:37] VITALS: BP 128/78
== END 2018-06-09 03:37 | disposition home or self-care (01) ==
LOC: ED 23:59
DX: M54.5 Low back pain (principal); R30.0 Dysuria; R10.9 Unspecified abdominal pain; F41.1 Generalized anxiety disorder; J45.909 Unspecified asthma, uncomplicated; Z90.49 Acquired absence of other specified parts of digestive tract; Z90.89 Acquired absence of other organs
CPT/HCPCS: 36415; 72158; 80048; 81001; 82040; 85025; 85651; 86140; 96374; 99284; A9585; J2060

== ENCOUNTER 2018-07-08 18:04 | Emergency (ER) | payer BC ==
[~2018-07-08] VITALS: Ht 193 cm; Wt 104.0 kg
[~2018-07-08 18:04] MED LIST changes: +ZOLP-413 PO
[2018-07-08] MEDS ORDERED: LORazepam 1MG TABLET PO ONE (18:30)
[2018-07-08] MEDS ORDERED: LORazepam 1MG TABLET ONE (18:43)
[2018-07-08 18:48] LABS: BASOPHILS # (AUTO) 0.02 x10^3/uL (0-0.1); BASOPHILS % (AUTO) 0 % (0-1); EOSINOPHILS # (AUTO) 0.12 x10^3/uL (0-0.4); EOSINOPHILS % (AUTO) 2 % (1-7); LYMPHOCYTES # (AUTO) 1.42 x10^3/uL (1-3.4); LYMPHOCYTES % (AUTO) 19 % (22-44); MD NO; MEAN CORPUSCULAR HGB CONC 34.2 g/dL (33.2-36.2); MEAN CORPUSCULAR VOLUME 87.8 fL (81-97); MONOCYTES # (AUTO) 0.23 x10^3/uL (0.2-0.8); MONOCYTES % (AUTO) 3 % (2-9); NEUTROPHILS # (AUTO) 5.89 x10^3/uL (1.8-6.8); NEUTROPHILS % (AUTO) 77 % (42-75); PLATELET COUNT 390 x10^3/uL (130-400); RED BLOOD COUNT 5.75 x10^6/uL (4.38-5.82); RED CELL DISTRIBUTION WIDTH 14.1 % (9.4-14.8)
[2018-07-08 19:00] LABS: ALBUMIN 4.4 g/dL (3.4-5.0); ANION GAP 8 mmol/L (5-15); CALCIUM 9.1 mg/dL (8.5-10.1); CHLORIDE 109 mmol/L (98-107); CREATININE 1.03 mg/dL (0.7-1.3)
--- NOTE | 2018-07-08 19:03 | NUR ---
pt back from x-ray. pt medicated per order. pt on nibp and pulse ox. awaiting futher orders. warm blanket provided for comfort.
[2018-07-08 19:04] LABS: TROPONIN I < 0.015 ng/mL (0.000-0.045)
[2018-07-08 20:46] VITALS: BP 145/97
[2018-07-11] MEDS ORDERED: ZOLP-413 PO (16:21)
[2018-07-11] MEDS ORDERED: TIZA6CAP PO (16:21)
[2018-07-11] MEDS ORDERED: CLON2TAB PO (16:21)
== END 2018-07-08 21:06 | disposition home or self-care (01) ==
LOC: ED 18:44
DX: R07.2 Precordial pain (principal); J45.909 Unspecified asthma, uncomplicated; Z88.5 Allergy status to narcotic agent
CPT/HCPCS: 36415; 71046; 80048; 82040; 84484; 85025; 93005; 99284

== ENCOUNTER → 2018-07-11 | Emergency (ER) | payer BC ==
[~2018-07-11] VITALS: Ht 193 cm; Wt 101.2 kg
[~2018-07-11] MED LIST changes: +CHLORDIAZEPOXIDE 25 MG CAPSULE ONE; +CHLORDIAZEPOXIDE 25 MG CAPSULE PO PRN; +LORazepam 1MG TABLET ONE; +LORazepam 1MG TABLET PO ONE; +PROMETHAZINE 25 MG/ML, 1ML IM ONE; +PROMETHAZINE 25 MG/ML, 1ML ONE
--- NOTE | 2018-07-11 16:18 | NUR ---
PT PRESENTED TO ED D/T "KLONOPIN WITHDRAWS." STATES HAVE NOT TAKEN MED IN 2 DAYS DUE TO "RUNNING OUT OF THEM." +N/V. +FATIGUE. DENIES SI/HI. +"PINS AND NEEDS TO EXTREMITIES." FAMILY AT BEDSIDE.
--- NOTE | 2018-07-11 16:41 | NUR ---
PT MEDICATED PER EMAR .
--- NOTE | 2018-07-11 16:56 | NUR ---
PT STATED NEW RELIEF WITH MEDICATIONS ADMINISTERED. ERMD INFORMED.
--- NOTE | 2018-07-11 17:00 | NUR ---
PT MEDICATED PER EMAR.
[2018-07-11 17:37] VITALS: BP 138/85
--- NOTE | 2018-07-11 17:55 | NUR ---
PT DISCHARGED HOME IN A STABLE CONDITION. DC INSTRUCTIONS WERE DISCUSSED WITH PT. PT VERBALIZED UNDERSTANDING. NO FURTHER QUESTIONS OR CONCERNS WERE EXPRESSED AT THAT TIME. PT AMBULATED WITH RN TO DC DESK. STEADY GAIT.
== END ==
LOC: ED 17:46
DX: F13.239 Sedative, hypnotic or anxiolytic dependence with withdrawal, unspecified (principal); F41.1 Generalized anxiety disorder; J45.909 Unspecified asthma, uncomplicated; F32.9 Major depressive disorder, single episode, unspecified; Z87.19 Personal history of other diseases of the digestive system; Z90.49 Acquired absence of other specified parts of digestive tract; Z90.89 Acquired absence of other organs
CPT/HCPCS: 96372; 99284; J2550

== ENCOUNTER 2018-09-02 13:31 | Emergency (ER) | payer SELFPAY ==
[~2018-09-02] VITALS: Ht 193 cm; Wt 101.2 kg
[~2018-09-02 13:31] MED LIST changes: -CHLORDIAZEPOXIDE 25 MG CAPSULE ONE; -CHLORDIAZEPOXIDE 25 MG CAPSULE PO PRN; -LORazepam 1MG TABLET ONE; -LORazepam 1MG TABLET PO ONE; -PROMETHAZINE 25 MG/ML, 1ML IM ONE; -PROMETHAZINE 25 MG/ML, 1ML ONE
--- NOTE | 2018-09-02 14:00 | NUR ---
PT TO ROOM FROM TRIAGE
--- NOTE | 2018-09-02 14:08 | NUR ---
CONTACT WITH PT, 33 YR OLD MALE HERE WITH C/O "I HAVENT REALLY EATEN OR DRANK IN ABOUT 3 DAYS. R/T STOMACH PAINS. I WENT OUT BACK, FELL IN A HOLE, TWISTED MY ANKLE, HIT MY HEAD, IT HURT REALLY BAD AND I STARTED PUKING"
--- NOTE | 2018-09-02 14:17 | NUR ---
SOFTWARE TEST AUTOMATION ENGINEER AND PORTABLE XRAY OF LEFT ANKLE DONE. PT PROVIDED WITH URINAL FOR URINE SPECIMAN. PT PROVIDED WITH WARM BLANKET. PT UPDATED ON POC. NO OTHER NEEDS EXPRESSED AT THIS TIME.
[2018-09-02 14:33] LABS: ALANINE AMINOTRANSFERASE 55 U/L (12-78); ANION GAP 9 mmol/L (5-15); CALCIUM 9.9 mg/dL (8.5-10.1); CHLORIDE 103 mmol/L (98-107); CREATININE 1.27 mg/dL (0.7-1.3)
[2018-09-02 14:35] LABS: ALKALINE PHOSPHATASE 61 U/L (45-117); BILIRUBIN,TOTAL 0.4 mg/dL (0.2-1.0); TOTAL PROTEIN 8.8 g/dL (6.4-8.2)
[2018-09-02] MEDS ORDERED: ONDANSETRON ODT 4 MG PO ONE (15:00)
[2018-09-02] MEDS ORDERED: MAALOX/HYOSCYAMINE/LIDOCAINE 45 ML BTL PO ONE (15:00)
[2018-09-02] MEDS ORDERED: SODIUM CHLORIDE FLUSH 10ML SYR IVF ONE (15:00)
[2018-09-02] MEDS ORDERED: MORPHINE SULFATE 4 MG/ML, 1ML IVPush PRN (15:00)
[2018-09-02] MEDS ORDERED: FAMOTIDINE 20 MG/2 ML IVP ONE (15:00)
[2018-09-02] MEDS ORDERED: SODIUM CHLORIDE 0.9% 1,000ML IVBOLUS ONE (15:00)
[2018-09-02] MEDS ORDERED: METOCLOPRAMIDE 5 MG/ML, 2ML IVPush ONE (15:00)
[2018-09-02] MEDS ORDERED: FAMOTIDINE 20 MG TABLET PO ONE (15:00)
--- NOTE | 2018-09-02 15:00 | NUR ---
IV ESTABLISHED. PT MEDICATED PER EMAR. UA COLLECTED AND SENT TO LAB. BP/SPO2 MONITORING IN PLACE. PLACED ON 2L BY UT FOR SUPPORT.
[2018-09-02] MEDS ORDERED: FAMOTIDINE 20 MG/2 ML ONE (15:03)
[2018-09-02] MEDS ORDERED: METOCLOPRAMIDE 5 MG/ML, 2ML ONE (15:03)
[2018-09-02] MEDS ORDERED: MORPHINE SULFATE 4 MG/ML, 1ML ONE (15:03)
--- NOTE | 2018-09-02 15:24 | NUR ---
REPORT TO BARRY SINGLETARY
[2018-09-02 15:37] LABS: MICROSCOPIC INDICATED
[2018-09-02 15:45] LABS: CULTURE INDICATED? NO
[2018-09-02 16:13] VITALS: BP 126/65
--- NOTE | 2018-09-02 16:17 | NUR ---
PT REPORTS IMPROVEMENT IN PAIN/NAUSEA WITH MEDS. SPO2 >90% ON RA. DC EDUCATION PROVIDED, PT DEMONSTRATES UNDERSTANDING. PT AMBULATED STEADILY TO DC WITH RN AND FRIEND. FRIEND TO TRANSPORT PT HOME.
== END 2018-09-02 16:37 | disposition home or self-care (01) ==
LOC: ED 14:31
DX: G89.29 Other chronic pain (principal); R10.84 Generalized abdominal pain; E86.0 Dehydration; M25.572 Pain in left ankle and joints of left foot; R42 Dizziness and giddiness
CPT/HCPCS: 36415; 70450; 73610; 80053; 81001; 93005; 96374; 96375; 99284; J2765; J3490; J7030

== ENCOUNTER 2018-11-23 14:19 | Emergency (ER) | payer SELFPAY ==
[~2018-11-23] VITALS: Ht 193 cm; Wt 102.0 kg
[2018-11-23 15:10] VITALS: BP 125/72
== END 2018-11-23 15:52 ==
LOC: ED 15:46
DX: S60.229A Contusion of unspecified hand, initial encounter (principal); M54.2 Cervicalgia; R10.2 Pelvic and perineal pain; R11.10 Vomiting, unspecified; Z90.49 Acquired absence of other specified parts of digestive tract; W13.2XXA Fall from, out of or through roof, initial encounter; Y93.89 Activity, other specified; Y92.69 Other specified industrial and construction area as the place of occurrence of the external cause; Y99.8 Other external cause status
CPT/HCPCS: 93005; 96374; 96375; 99285; J2270; J2405

== ENCOUNTER 2018-11-29 23:34 | Emergency (ER) | payer OTHER ==
[~2018-11-29] VITALS: Ht 193 cm; Wt 109.5 kg
[~2018-11-29 23:34] MED LIST changes: -GUAI200T3 PO; +GUAI200T37 PO; -IBUP-1484 PO; +IBUP-1902 PO
[2018-11-29 23:41] VITALS: BP 157/101
[2018-11-29] MEDS ORDERED: ONDANSETRON ODT 4 MG ONE (23:57)
[2018-11-30] MEDS ORDERED: ONDANSETRON ODT 4 MG PO ONE
== END 2018-11-30 01:54 | disposition home or self-care (01) ==
LOC: ED 11-30 00:36
DX: S06.0X0A Concussion without loss of consciousness, initial encounter (principal); R07.89 Other chest pain; S00.03XA Contusion of scalp, initial encounter; Z90.49 Acquired absence of other specified parts of digestive tract; W10.9XXA Fall (on) (from) unspecified stairs and steps, initial encounter; Y93.89 Activity, other specified; Y92.69 Other specified industrial and construction area as the place of occurrence of the external cause; Y99.8 Other external cause status
CPT/HCPCS: 70450; 71045; 99284; Q0162

== ENCOUNTER 2018-12-06 04:38 | Emergency (ER) | payer OTHER ==
[~2018-12-06] VITALS: Ht 193 cm; Wt 101.0 kg
[2018-12-06 10:21] VITALS: BP 129/86
== END 2018-12-06 11:04 | disposition home or self-care (01) ==
LOC: ED 05:07
DX: R42 Dizziness and giddiness (principal); G44.309 Post-traumatic headache, unspecified, not intractable; R11.2 Nausea with vomiting, unspecified
CPT/HCPCS: 36415; 70480; 70498; 70553; 80048; 85025; 93005; 96374; 96375; 99284; A9585; J1200; J2060; J2765; Q0162

== ENCOUNTER 2019-03-15 19:03 | Emergency (ER) | payer SELFPAY ==
[~2019-03-15] VITALS: Ht 193 cm; Wt 107.2 kg
[2019-03-15 19:40] LABS: BASOPHILS # (AUTO) 0.07 x10^3/uL (0-0.1); BASOPHILS % (AUTO) 1 % (0-1); EOSINOPHILS # (AUTO) 0.28 x10^3/uL (0-0.4); EOSINOPHILS % (AUTO) 4 % (1-7); LYMPHOCYTES # (AUTO) 2.15 x10^3/uL (1-3.4); LYMPHOCYTES % (AUTO) 29 % (22-44); MD NO; MEAN CORPUSCULAR HEMOGLOBIN 31.1 pg (27.5-34.5); MEAN CORPUSCULAR HGB CONC 33.9 g/dL (33.2-36.2); MEAN CORPUSCULAR VOLUME 91.9 fL (81-97); MONOCYTES # (AUTO) 0.55 x10^3/uL (0.2-0.8); MONOCYTES % (AUTO) 8 % (2-9); NEUTROPHILS # (AUTO) 4.27 x10^3/uL (1.8-6.8); NEUTROPHILS % (AUTO) 58 % (42-75); PLATELET COUNT 388 x10^3/uL (130-400); RED BLOOD COUNT 5.05 x10^6/uL (4.38-5.82); RED CELL DISTRIBUTION WIDTH 12.4 % (9.4-14.8)
[2019-03-15 19:45] LABS: ALANINE AMINOTRANSFERASE 104 U/L (12-78); ALBUMIN 3.7 g/dL (3.4-5.0); ANION GAP 7 mmol/L (5-15); CALCIUM 8.5 mg/dL (8.5-10.1); CHLORIDE 101 mmol/L (98-107); CREATININE 0.99 mg/dL (0.7-1.3)
[2019-03-15 19:49] LABS: ALKALINE PHOSPHATASE 57 U/L (45-117); BILIRUBIN,TOTAL 0.3 mg/dL (0.2-1.0); TOTAL PROTEIN 7.5 g/dL (6.4-8.2); TROPONIN I < 0.015 ng/mL (0.000-0.045)
--- NOTE | 2019-03-15 20:48 | NUR ---
PT REPORTS HE WAS HERE LAST MONTH WITH CHEST PAIN AND WAS TOLD HE HAS "EXCESS FLUID AROUND HIS HEART". STATES HE HAS F/U APPT SCHEDULED WITH LATHE TENDER. REPORTS CURRENT STERNAL CHEST PAIN 8/10, PRESSURE, HAS BEEN CONSTANT FOR "A COUPLE DAYS". ON ALL MONITORS, HR 80s SR. POC RV'WD WITH PT. ALL RESULTS BACK.
[2019-03-15] MEDS ORDERED: IBUPROFEN 200 MG TABLET PO ONE (22:00)
[2019-03-15] MEDS ORDERED: ACETAMINOPHEN 500 MG TABLET PO ONE (22:00)
[2019-03-15] MEDS ORDERED: IBUPROFEN 600 MG TABLET ONE (22:15)
[2019-03-15] MEDS ORDERED: ACETAMINOPHEN 500 MG TABLET ONE (22:16)
[2019-03-15 22:19] VITALS: BP 119/82
--- NOTE | 2019-03-15 22:22 | NUR ---
ERP WAS IN FOR RECHECK. PT MEDICATED FOR PAIN PER ORDERS. STATES HE WANTS TO GO HOME. D/C INSTRUCTIONS, MEDS & F/U APPT RV'WD WITH PT. PT HAS APPT WITH RE[facility] CUTTER ON TUESDAY. INSTRUCTED PT TO RETURN FOR WORSENING CP OR OTHER CONCERNING SYMPTOMS. RX GIVEN X1. PT AMBULATED OUT OF ED WITHOUT DIFFICULTY, STATES HE HAS SOMEONE TO PICK HIM UP.
== END 2019-03-15 22:25 | disposition home or self-care (01) ==
LOC: ED 21:52
DX: R07.89 Other chest pain (principal); G89.29 Other chronic pain; Z90.49 Acquired absence of other specified parts of digestive tract
CPT/HCPCS: 36415; 71045; 80053; 83690; 83880; 84484; 85025; 93005; 99284

== ENCOUNTER 2019-05-15 18:46 | Inpatient (IN) | payer OTHER ==
[~2019-05-15] VITALS: Ht 193 cm; Wt 99.7 kg
[2019-05-15] MEDS ORDERED: ACETAMINOPHEN 325 MG TABLET ONE (21:20)
[2019-05-15] MEDS ORDERED: ACETAMINOPHEN 325 MG TABLET PO ONE (21:30)
[2019-05-15] MEDS ORDERED: SODIUM CHLORIDE 0.9% 1,000ML IVBOLUS ONE ×2 (21:30→22:30)
[2019-05-15] MEDS ORDERED: SODIUM CHLORIDE FLUSH 10ML SYR IVF ONE (21:30)
[2019-05-15 21:36] LABS: BASOPHILS # (AUTO) 0.02 x10^3/uL (0-0.1); BASOPHILS % (AUTO) 0 % (0-1); EOSINOPHILS # (AUTO) 0.08 x10^3/uL (0-0.4); EOSINOPHILS % (AUTO) 1 % (1-7); LYMPHOCYTES # (AUTO) 0.51 x10^3/uL (1-3.4); LYMPHOCYTES % (AUTO) 6 % (22-44); MD NO; MEAN CORPUSCULAR HEMOGLOBIN 29.9 pg (27.5-34.5); MEAN CORPUSCULAR HGB CONC 33.6 g/dL (33.2-36.2); MEAN CORPUSCULAR VOLUME 89.2 fL (81-97); MEAN PLATELET VOLUME 7.2 fL (7.4-10.4); MONOCYTES # (AUTO) 0.45 x10^3/uL (0.2-0.8); MONOCYTES % (AUTO) 5 % (2-9); NEUTROPHILS # (AUTO) 7.73 x10^3/uL (1.8-6.8); NEUTROPHILS % (AUTO) 88 % (42-75); PLATELET COUNT 324 x10^3/uL (130-400); RED BLOOD COUNT 5.65 x10^6/uL (4.38-5.82); RED CELL DISTRIBUTION WIDTH 12.4 % (9.4-14.8)
[2019-05-15] MEDS ORDERED: ONDANSETRON 2MG/ML, 2ML ONE (21:46)
[2019-05-15 21:47] LABS: ALANINE AMINOTRANSFERASE 171 U/L (12-78); ALBUMIN 4.3 g/dL (3.4-5.0); ANION GAP 8 mmol/L (5-15); CALCIUM 9.8 mg/dL (8.5-10.1); CHLORIDE 104 mmol/L (98-107); CREATININE 1.07 mg/dL (0.7-1.3)
[2019-05-15] MEDS: ONDANSETRON 2MG/ML, 2ML IVPush PRN (21:47)
--- NOTE | 2019-05-15 21:48 | NUR ---
pt c/o nausea, erp updated. pt medicated per jun. provided pt with urine cup for sample
[2019-05-15 21:49] LABS: ALKALINE PHOSPHATASE 70 U/L (45-117); BILIRUBIN,TOTAL 0.8 mg/dL (0.2-1.0); TOTAL PROTEIN 8.2 g/dL (6.4-8.2)
--- NOTE | 2019-05-15 22:09 | NUR ---
Urine taken to lab.
[2019-05-15 22:30] LABS: AMPHETAMINE SCREEN, URINE Negative (Negative); BARBITURATE SCREEN, URINE Negative (Negative); BENZODIAZEPINE SCREEN, URINE Positive (Negative); CANNABINOID SCREEN, URINE Negative (Negative); COCAINE SCREEN, URINE Negative (Negative); METHADONE SCREEN, URINE Negative (Negative); OPIATE SCREEN, URINE Positive (Negative)
[2019-05-15] MEDS ORDERED: HYDR-3245 PO (22:32)
--- NOTE | 2019-05-15 22:32 | NUR ---
pt resting on gurney, monitors in place, sidrails up x2, call light within reach, doretha angels at thsi tiem. awaiting urine result
[2019-05-15] MEDS ORDERED: ALBUTEROL/IPRATROPIUM 2.5MG/0.5MG, 3 ML ONE (23:15)
[2019-05-15] MEDS ORDERED: CEFTRIAXONE PMX 1GM/50ML 50 ML ONE (23:17)
[2019-05-15] MEDS ORDERED: morphine SULFATE 10 MG/ML, 1ML ONE (23:17)
[2019-05-15] MEDS ORDERED: PROCHLORPERAZINE 5 MG/ML, 2ML ONE (23:18)
[2019-05-15] MEDS ORDERED: ALBUTEROL/IPRATROPIUM 2.5MG/0.5MG, 3 ML NPPB ONE (23:30)
[2019-05-15] MEDS ORDERED: PROCHLORPERAZINE 5 MG/ML, 2ML IVPush ONE (23:30)
[2019-05-15] MEDS ORDERED: AZITHROMYCIN 500 MG in SODIUM CHLORIDE 0.9% 250 ML IV ONE (23:30)
[2019-05-15] MEDS ORDERED: SODIUM CHLORIDE 0.9% 1,000 ML IV ONE (23:30)
[2019-05-15] MEDS ORDERED: MORPHINE SULFATE 4 MG/ML, 1ML IVPush ONE (23:30)
[2019-05-15] MEDS ORDERED: CEFTRIAXONE PMX 1GM/50ML 50 ML IV ONE (23:30)
[2019-05-15 23:49] LABS: RAPID INFLUENZA A Negative (Negative); RAPID INFLUENZA B Negative (Negative)
--- NOTE | 2019-05-15 23:59 | NUR ---
pt resting on gurney, monitors in place, iv fluids and abx infusing, call light within reach. awaiting room for admit
[2019-05-16] MEDS ORDERED: BENZONATATE 100 MG CAPSULE PO PRN
[2019-05-16] MEDS ORDERED: CEFTRIAXONE PMX 1GM/50ML 50 ML IV SCH
[2019-05-16] MEDS ORDERED: ACETAMINOPHEN 325 MG TABLET PO PRN
[2019-05-16] MEDS ORDERED: POLYETHYLENE GLYCOL 17 GM PACKET PO PRN
[2019-05-16] MEDS ORDERED: BISACODYL 10 MG SUPP PR PRN
[2019-05-16 00:36] VITALS: BP 150/89
[2019-05-16] MEDS: PROMETHAZINE 25 MG/ML, 1ML IM PRN (01:09)
[2019-05-16] MEDS: TIZANIDINE 4MG TABLET PO SCH ×4 (01:31→20:14)
[2019-05-16] MEDS: HYDROcodone/APAP 10/325 MG TABLET PO SCH ×4 (01:31→20:14)
[2019-05-16] MEDS: SODIUM CHLORIDE 0.9% 1,000 ML IV SCH ×3 (01:32→23:02)
[2019-05-16] MEDS: ZOLPIDEM 5MG TABLET PO SCH ×2 (01:32→20:13)
[2019-05-16 06:12] LABS: BASOPHILS # (AUTO) 0.02 x10^3/uL (0-0.1); BASOPHILS % (AUTO) 1 % (0-1); EOSINOPHILS # (AUTO) 0.03 x10^3/uL (0-0.4); EOSINOPHILS % (AUTO) 1 % (1-7); LYMPHOCYTES # (AUTO) 0.74 x10^3/uL (1-3.4); LYMPHOCYTES % (AUTO) 15 % (22-44); MD NO; MEAN CORPUSCULAR HEMOGLOBIN 29.8 pg (27.5-34.5); MEAN CORPUSCULAR HGB CONC 33.8 g/dL (33.2-36.2); MEAN CORPUSCULAR VOLUME 88.3 fL (81-97); MEAN PLATELET VOLUME 7.7 fL (7.4-10.4); MONOCYTES # (AUTO) 0.57 x10^3/uL (0.2-0.8); MONOCYTES % (AUTO) 11 % (2-9); NEUTROPHILS # (AUTO) 3.77 x10^3/uL (1.8-6.8); NEUTROPHILS % (AUTO) 74 % (42-75); PLATELET COUNT 241 x10^3/uL (130-400); RED BLOOD COUNT 4.52 x10^6/uL (4.38-5.82); RED CELL DISTRIBUTION WIDTH 12.1 % (9.4-14.8)
[2019-05-16 06:19] VITALS: BP 101/63
[2019-05-16 06:22] LABS: ALANINE AMINOTRANSFERASE 141 U/L (12-78); ALBUMIN 3.1 g/dL (3.4-5.0); ANION GAP 9 mmol/L (5-15); CALCIUM 7.6 mg/dL (8.5-10.1); CHLORIDE 109 mmol/L (98-107); CREATININE 0.99 mg/dL (0.7-1.3)
[2019-05-16 06:24] LABS: ALKALINE PHOSPHATASE 58 U/L (45-117); BILIRUBIN,TOTAL 0.6 mg/dL (0.2-1.0); TOTAL PROTEIN 6.2 g/dL (6.4-8.2)
[2019-05-16] MEDS: SENNA/DOCUSATE TABLET PO SCH (08:19)
[2019-05-16] MEDS: HEPARIN 5,000 UNITS/ML, 1ML SQ SCH ×2 (08:21→16:30)
[2019-05-16] MEDS: GUAIFENESIN 200 MG TABLET PO SCH ×2 (11:00→20:13)
[2019-05-16] MEDS: ONDANSETRON ODT 4 MG PO PRN (12:39)
[2019-05-16 13:09] VITALS: BP 132/80
[2019-05-16] MEDS: ACETAMINOPHEN 325 MG TABLET PO PRN (17:22)
[2019-05-16] MEDS ORDERED: MORPHINE SULFATE 4 MG/ML, 1ML ONE (17:47)
[2019-05-16] MEDS: morphine SULFATE 10 MG/ML, 1ML IVPush PRN ×2 (17:54→23:02)
[2019-05-16 18:54] VITALS: BP 98/60
[2019-05-16] MEDS: ONDANSETRON 2MG/ML, 2ML IVPush PRN (20:13)
[2019-05-16] MEDS ORDERED: AZITHROMYCIN 500 MG in SODIUM CHLORIDE 0.9% 250 ML IV SCH ×2 (23:00)
[2019-05-16] MEDS: CEFTRIAXONE PMX 2GM/50ML 50 ML IV SCH (23:02)
[2019-05-17] VITALS (7 sets, daily range): BP systolic 96–142; BP diastolic 59–92
[2019-05-17] MEDS: ONDANSETRON ODT 4 MG PO PRN (01:34)
[2019-05-17] MEDS: HEPARIN 5,000 UNITS/ML, 1ML SQ SCH ×4 (01:34→20:38)
[2019-05-17] MEDS: morphine SULFATE 10 MG/ML, 1ML IVPush PRN ×4 (03:11→23:46)
[2019-05-17] MEDS: HYDROcodone/APAP 10/325 MG TABLET PO SCH ×5 (05:31→20:30)
[2019-05-17] MEDS: PROMETHAZINE 25 MG/ML, 1ML IM PRN (05:34)
[2019-05-17] MEDS: ACETAMINOPHEN 325 MG TABLET PO PRN ×2 (05:37→16:53)
[2019-05-17 05:53] LABS: ANION GAP 7 mmol/L (5-15); CALCIUM 8.8 mg/dL (8.5-10.1); CHLORIDE 105 mmol/L (98-107); CREATININE 1.01 mg/dL (0.7-1.3)
[2019-05-17] MEDS: GUAIFENESIN 200 MG TABLET PO SCH ×2 (07:51→20:30)
[2019-05-17] MEDS: SENNA/DOCUSATE TABLET PO SCH (07:52)
[2019-05-17] MEDS: TIZANIDINE 4MG TABLET PO SCH ×3 (07:52→20:29)
[2019-05-17] MEDS ORDERED: VANCOMYCIN PER PHARMACY MC PRN (08:00)
[2019-05-17 09:00] LABS: BASOPHILS # (AUTO) 0.02 x10^3/uL (0-0.1); BASOPHILS % (AUTO) 1 % (0-1); EOSINOPHILS # (AUTO) 0.05 x10^3/uL (0-0.4); EOSINOPHILS % (AUTO) 1 % (1-7); LYMPHOCYTES # (AUTO) 0.84 x10^3/uL (1-3.4); LYMPHOCYTES % (AUTO) 19 % (22-44); MD NO; MEAN CORPUSCULAR HEMOGLOBIN 29.8 pg (27.5-34.5); MEAN CORPUSCULAR HGB CONC 33.3 g/dL (33.2-36.2); MEAN CORPUSCULAR VOLUME 89.5 fL (81-97); MEAN PLATELET VOLUME 7.2 fL (7.4-10.4); MONOCYTES # (AUTO) 0.55 x10^3/uL (0.2-0.8); MONOCYTES % (AUTO) 12 % (2-9); NEUTROPHILS # (AUTO) 2.96 x10^3/uL (1.8-6.8); NEUTROPHILS % (AUTO) 67 % (42-75); PLATELET COUNT 237 x10^3/uL (130-400); RED BLOOD COUNT 4.87 x10^6/uL (4.38-5.82); RED CELL DISTRIBUTION WIDTH 12.1 % (9.4-14.8)
[2019-05-17 09:05] LABS: INTERNATIONAL NORMALIZED RATIO 1.04 (0.93-1.1)
[2019-05-17] MEDS ORDERED: PHARMACOKINETIC MONITORING MC PRN (11:00)
[2019-05-17] MEDS: VANCOMYCIN 2,100 MG in SODIUM CHLORIDE 0.9% 500 ML IV SCH ×2 (11:07→23:19)
[2019-05-17] MEDS: SODIUM CHLORIDE 0.9% 1,000 ML IV SCH (14:11)
[2019-05-17] MEDS ORDERED: LIDOCAINE-MPF 1%, 5ML ONE (15:03)
[2019-05-17] MEDS: ZOLPIDEM 5MG TABLET PO SCH (20:30)
[2019-05-17] MEDS: ONDANSETRON 2MG/ML, 2ML IVPush PRN (20:30)
[2019-05-17] MEDS: CEFTRIAXONE PMX 2GM/50ML 50 ML IV SCH (22:39)
[2019-05-18 00:55] VITALS: BP 102/64
[2019-05-18] MEDS: ONDANSETRON ODT 4 MG PO PRN (03:35)
[2019-05-18] MEDS: morphine SULFATE 10 MG/ML, 1ML IVPush PRN ×4 (03:35→23:16)
[2019-05-18 05:59] LABS: BASOPHILS # (AUTO) 0.01 x10^3/uL (0-0.1); BASOPHILS % (AUTO) 0 % (0-1); EOSINOPHILS # (AUTO) 0.27 x10^3/uL (0-0.4); EOSINOPHILS % (AUTO) 6 % (1-7); LYMPHOCYTES # (AUTO) 1.17 x10^3/uL (1-3.4); LYMPHOCYTES % (AUTO) 28 % (22-44); MD NO; MEAN CORPUSCULAR HEMOGLOBIN 29.7 pg (27.5-34.5); MEAN CORPUSCULAR HGB CONC 33.3 g/dL (33.2-36.2); MEAN CORPUSCULAR VOLUME 89.3 fL (81-97); MEAN PLATELET VOLUME 7.4 fL (7.4-10.4); MONOCYTES # (AUTO) 0.41 x10^3/uL (0.2-0.8); MONOCYTES % (AUTO) 10 % (2-9); NEUTROPHILS # (AUTO) 2.33 x10^3/uL (1.8-6.8); NEUTROPHILS % (AUTO) 56 % (42-75); PLATELET COUNT 200 x10^3/uL (130-400); RED BLOOD COUNT 4.36 x10^6/uL (4.38-5.82); RED CELL DISTRIBUTION WIDTH 12.3 % (9.4-14.8)
[2019-05-18] MEDS: ACETAMINOPHEN 325 MG TABLET PO PRN (05:59)
[2019-05-18 06:08] LABS: ALANINE AMINOTRANSFERASE 99 U/L (12-78); ALBUMIN 3.1 g/dL (3.4-5.0); ANION GAP 8 mmol/L (5-15); CALCIUM 7.9 mg/dL (8.5-10.1); CHLORIDE 104 mmol/L (98-107)
[2019-05-18 06:22] LABS: ALKALINE PHOSPHATASE 48 U/L (45-117); BILIRUBIN,TOTAL 0.3 mg/dL (0.2-1.0); CREATININE 0.97 mg/dL (0.7-1.3); TOTAL PROTEIN 6.4 g/dL (6.4-8.2)
[2019-05-18 06:42] VITALS: BP 123/73
[2019-05-18] MEDS: TIZANIDINE 4MG TABLET PO SCH ×3 (08:16→20:28)
[2019-05-18] MEDS: GUAIFENESIN 200 MG TABLET PO SCH ×2 (08:16→20:28)
[2019-05-18] MEDS: SENNA/DOCUSATE TABLET PO SCH (08:17)
[2019-05-18] MEDS: HEPARIN 5,000 UNITS/ML, 1ML SQ SCH (08:17)
[2019-05-18] MEDS: HYDROcodone/APAP 10/325 MG TABLET PO SCH ×4 (09:00→20:31)
[2019-05-18] MEDS: ACYCLOVIR 1,000 MG in SODIUM CHLORIDE 0.9% 250 ML IV SCH ×2 (09:21→18:33)
[2019-05-18] MEDS: DEXAMETHASONE 4 MG/ML, 1ML IVPush SCH ×3 (09:21→20:29)
[2019-05-18] MEDS ORDERED: FENTANYL PF 250 MCG/5ML ONE (10:42)
[2019-05-18] MEDS ORDERED: THROMBIN 5,000 UNIT VIAL TP ONE (10:48)
[2019-05-18] MEDS ORDERED: EPINEPHRINE 1 MG/ML, 1ML ONE (10:48)
[2019-05-18] MEDS ORDERED: BACITRACIN 50,000 UNIT ONE (10:48)
[2019-05-18] MEDS ORDERED: BUPIVACAINE/PF 0.5% ONE (10:48)
[2019-05-18] MEDS ORDERED: THROMBIN 20,000 UNIT VIAL TP ONE (10:49)
[2019-05-18 10:57] LABS: GLUCOSE, CSF 65 mg/dL (40-80); TOTAL PROTEIN,CSF 52 mg/dL (15-45)
[2019-05-18] MEDS: VANCOMYCIN 2,100 MG in SODIUM CHLORIDE 0.9% 500 ML IV SCH (11:00)
[2019-05-18] MEDS ORDERED: FENTANYL PF 100 MCG/2ML IV PRN (12:30)
[2019-05-18] MEDS ORDERED: hydrALAzine 20 MG/ML, 1ML IV PRN (12:30)
[2019-05-18] MEDS ORDERED: METOPROLOL 1 MG/ML, 5ML IV PRN (12:30)
[2019-05-18] MEDS ORDERED: PROMETHAZINE 25 MG/ML, 1ML IV PRN (12:30)
[2019-05-18] MEDS ORDERED: HYDROmorphone 2 MG/ML, 1ML IVPush PRN (12:30)
[2019-05-18] MEDS ORDERED: LORazepam 2 MG/ML, 1ML IVPush PRN (12:30)
[2019-05-18] MEDS ORDERED: OXYcodone 5 MG/5 ML ORAL.SOL UDC PO PRN (12:30)
[2019-05-18] MEDS ORDERED: ALBUTEROL/IPRATROPIUM 2.5MG/0.5MG, 3 ML NPPB PRN (12:30)
[2019-05-18] MEDS ORDERED: MIDAZOLAM 1 MG/ML, 2ML IV PRN (12:30)
[2019-05-18] MEDS ORDERED: ACETAMINOPHEN 325 MG TABLET PO PRN (12:30)
[2019-05-18] MEDS ORDERED: ONDANSETRON 2MG/ML, 2ML ONE (12:41)
[2019-05-18] MEDS ORDERED: CEFAZOLIN 1,000 MG ONE (12:41)
[2019-05-18] MEDS ORDERED: ROCURONIUM 10MG/ML,5ML ONE (12:41)
[2019-05-18] MEDS ORDERED: GLYCOPYRROLATE 0.2MG/1ML, 5ML ONE (12:41)
[2019-05-18] MEDS ORDERED: DEXAMETHASONE 4 MG/ML, 1ML ONE (12:41)
[2019-05-18] MEDS ORDERED: NEOSTIGMINE 1 MG/ML, 10ML ONE (12:41)
[2019-05-18] MEDS ORDERED: PROPOFOL 10 MG/ML, 20ML ONE (12:41)
[2019-05-18] MEDS: CEFTRIAXONE PMX 2GM/50ML 50 ML IV SCH (14:57)
[2019-05-18] MEDS ORDERED: CALCIUM CARBONATE 500 MG TAB.CHEW ONE (15:42)
[2019-05-18] MEDS: CALCIUM CARBONATE 500 MG TAB.CHEW PO PRN (15:47)
[2019-05-18] MEDS ORDERED: LABETALOL 5 MG/ML SYR. (IV ONLY) IVPush PRN (18:00)
[2019-05-18] MEDS: ZOLPIDEM 5MG TABLET PO SCH (20:28)
[2019-05-18] MEDS ORDERED: SODIUM CHLORIDE 0.9% 1,000 ML IV SCH (23:46)
[2019-05-19] MEDS: ACYCLOVIR 1,000 MG in SODIUM CHLORIDE 0.9% 250 ML IV SCH ×2 (01:45→09:37)
[2019-05-19] MEDS: ONDANSETRON ODT 4 MG PO PRN (03:00)
[2019-05-19] MEDS: DEXAMETHASONE 4 MG/ML, 1ML IVPush SCH ×4 (03:00→19:52)
[2019-05-19] MEDS: CEFTRIAXONE PMX 2GM/50ML 50 ML IV SCH ×2 (03:00→16:18)
[2019-05-19 04:24] LABS: ALANINE AMINOTRANSFERASE 83 U/L (12-78); ALBUMIN 3.4 g/dL (3.4-5.0); ANION GAP 7 mmol/L (5-15); BASOPHILS % (AUTO) 0 % (0-1); CALCIUM 8.9 mg/dL (8.5-10.1); CHLORIDE 105 mmol/L (98-107); EOSINOPHILS % (AUTO) 0 % (1-7); LYMPHOCYTES # (AUTO) 0.67 x10^3/uL (1-3.4); LYMPHOCYTES % (AUTO) 9 % (22-44); MD NO; MEAN CORPUSCULAR HEMOGLOBIN 29.8 pg (27.5-34.5); MEAN CORPUSCULAR HGB CONC 33.5 g/dL (33.2-36.2); MEAN PLATELET VOLUME 7.6 fL (7.4-10.4); MONOCYTES % (AUTO) 4 % (2-9); NEUTROPHILS # (AUTO) 6.73 x10^3/uL (1.8-6.8); NEUTROPHILS % (AUTO) 87 % (42-75); PLATELET COUNT 240 x10^3/uL (130-400); RED BLOOD COUNT 4.52 x10^6/uL (4.38-5.82); RED CELL DISTRIBUTION WIDTH 12.2 % (9.4-14.8)
[2019-05-19] MEDS: morphine SULFATE 10 MG/ML, 1ML IVPush PRN (04:27)
[2019-05-19 04:33] LABS: % IRON SATURATION 12 % (20-55); ALKALINE PHOSPHATASE 48 U/L (45-117); BILIRUBIN,TOTAL 0.2 mg/dL (0.2-1.0); CREATINE KINASE, TOTAL 382 U/L (39-308); CREATININE 0.94 mg/dL (0.7-1.3); IRON LEVEL 38 mcg/dL (65-175); TOTAL IRON BINDING CAPACITY 324 mcg/dL (250-450); TOTAL PROTEIN 7.3 g/dL (6.4-8.2)
[2019-05-19] MEDS: TIZANIDINE 4MG TABLET PO SCH ×3 (09:35→19:54)
[2019-05-19] MEDS: GUAIFENESIN 200 MG TABLET PO SCH ×2 (09:35→19:54)
[2019-05-19] MEDS: SENNA/DOCUSATE TABLET PO SCH (09:37)
[2019-05-19] MEDS: HYDROcodone/APAP 10/325 MG TABLET PO PRN ×2 (09:50→19:54)
[2019-05-19] MEDS: ACETAMINOPHEN 325 MG TABLET PO PRN (11:29)
[2019-05-19 12:26] LABS: INTERNATIONAL NORMALIZED RATIO 0.98 (0.93-1.1); PROTHROMBIN TIME 10.4 Seconds (9.6-11.5)
[2019-05-19] MEDS: ZOLPIDEM 5MG TABLET PO SCH (19:52)
[2019-05-20] MEDS: ACETAMINOPHEN 325 MG TABLET PO PRN ×2 (00:44→21:00)
[2019-05-20] MEDS: CEFTRIAXONE PMX 2GM/50ML 50 ML IV SCH (02:14)
[2019-05-20] MEDS: DEXAMETHASONE 4 MG/ML, 1ML IVPush SCH ×4 (02:14→21:02)
[2019-05-20 04:32] LABS: MEAN CORPUSCULAR HEMOGLOBIN 29.8 pg (27.5-34.5); MEAN CORPUSCULAR HGB CONC 32.9 g/dL (33.2-36.2); MEAN CORPUSCULAR VOLUME 90.4 fL (81-97); MEAN PLATELET VOLUME 7.6 fL (7.4-10.4); PLATELET COUNT 277 x10^3/uL (130-400); RED BLOOD COUNT 4.67 x10^6/uL (4.38-5.82); RED CELL DISTRIBUTION WIDTH 12.5 % (9.4-14.8)
[2019-05-20 04:42] LABS: ALANINE AMINOTRANSFERASE 70 U/L (12-78); ALBUMIN 3.4 g/dL (3.4-5.0); ANION GAP 7 mmol/L (5-15); CALCIUM 9.1 mg/dL (8.5-10.1); CHLORIDE 106 mmol/L (98-107); CREATININE 0.89 mg/dL (0.7-1.3)
[2019-05-20 04:44] LABS: ALKALINE PHOSPHATASE 60 U/L (45-117); BILIRUBIN,TOTAL 0.2 mg/dL (0.2-1.0); TOTAL PROTEIN 7.6 g/dL (6.4-8.2)
[2019-05-20 04:47] LABS: BASOPHILS # (AUTO) 0.03 x10^3/uL (0-0.1); BASOPHILS % (AUTO) 0 % (0-1); EOSINOPHILS % (AUTO) 0 % (1-7); LYMPHOCYTES % (AUTO) 6 % (22-44); MD SCAN; MONOCYTES # (AUTO) 0.38 x10^3/uL (0.2-0.8); MONOCYTES % (AUTO) 3 % (2-9); NEUTROPHILS # (AUTO) 10.61 x10^3/uL (1.8-6.8); NEUTROPHILS % (AUTO) 91 % (42-75)
[2019-05-20] MEDS: ONDANSETRON ODT 4 MG PO PRN (05:26)
[2019-05-20] MEDS: GUAIFENESIN 200 MG TABLET PO SCH ×2 (08:15→21:01)
[2019-05-20] MEDS: SENNA/DOCUSATE TABLET PO SCH (08:15)
[2019-05-20] MEDS: TIZANIDINE 4MG TABLET PO SCH ×3 (08:15→21:00)
[2019-05-20] MEDS: HYDROcodone/APAP 10/325 MG TABLET PO PRN ×3 (08:16→23:49)
[2019-05-20] MEDS: AZITHROMYCIN 500 MG TABLET PO SCH (12:42)
[2019-05-20] MEDS ORDERED: HYDROcodone/APAP 10/325 MG TABLET PO ONE (13:00)
[2019-05-20] MEDS ORDERED: MAGNESIUM SULFATE/D5W 100 ML IV ONE (13:30)
[2019-05-20] MEDS ORDERED: PROCHLORPERAZINE 5 MG/ML, 2ML IV ONE (13:30)
[2019-05-20] MEDS ORDERED: MAGNESIUM SULFATE 1 GM in SODIUM CHLORIDE 0.9% 50 ML IV ONE (13:30)
[2019-05-20] MEDS ORDERED: DIPHENHYDRAMINE 50 MG/ML, 1ML IVPush ONE (13:30)
[2019-05-20] MEDS: ZOLPIDEM 5MG TABLET PO SCH (21:00)
[2019-05-21] MEDS: DEXAMETHASONE 4 MG/ML, 1ML IVPush SCH ×4 (02:58→20:24)
[2019-05-21] MEDS: ACETAMINOPHEN 325 MG TABLET PO PRN ×2 (02:58→06:27)
[2019-05-21 04:43] LABS: BASOPHILS % (AUTO) 0 % (0-1); EOSINOPHILS % (AUTO) 0 % (1-7); LYMPHOCYTES # (AUTO) 0.84 x10^3/uL (1-3.4); LYMPHOCYTES % (AUTO) 7 % (22-44); MD NO; MEAN CORPUSCULAR HEMOGLOBIN 29.9 pg (27.5-34.5); MEAN CORPUSCULAR HGB CONC 33.2 g/dL (33.2-36.2); MEAN CORPUSCULAR VOLUME 89.8 fL (81-97); MEAN PLATELET VOLUME 7.9 fL (7.4-10.4); MONOCYTES % (AUTO) 3 % (2-9); NEUTROPHILS # (AUTO) 11.59 x10^3/uL (1.8-6.8); NEUTROPHILS % (AUTO) 90 % (42-75); PLATELET COUNT 339 x10^3/uL (130-400); RED CELL DISTRIBUTION WIDTH 12.4 % (9.4-14.8)
[2019-05-21 04:48] LABS: ANION GAP 7 mmol/L (5-15); CALCIUM 9.1 mg/dL (8.5-10.1); CHLORIDE 106 mmol/L (98-107); CREATININE 0.88 mg/dL (0.7-1.3)
[2019-05-21] MEDS: HYDROcodone/APAP 10/325 MG TABLET PO PRN ×4 (04:58→23:02)
[2019-05-21] MEDS: CALCIUM CARBONATE 500 MG TAB.CHEW PO PRN ×2 (05:16→10:09)
[2019-05-21] MEDS: GUAIFENESIN 200 MG TABLET PO SCH ×2 (08:45→20:24)
[2019-05-21] MEDS: SENNA/DOCUSATE TABLET PO SCH (08:45)
[2019-05-21] MEDS: TIZANIDINE 4MG TABLET PO SCH ×3 (08:45→20:25)
[2019-05-21] MEDS: AZITHROMYCIN 500 MG TABLET PO SCH (08:45)
[2019-05-21] MEDS ORDERED: SUMATRIPTAN 6MG/0.5ML SQ ONE (16:30)
[2019-05-21] MEDS: VALPROATE SODIUM 500 MG in SODIUM CHLORIDE 0.9% 100 ML IV SCH (19:01)
[2019-05-21] MEDS: ZOLPIDEM 5MG TABLET PO SCH (23:02)
[2019-05-22] MEDS: ACETAMINOPHEN 325 MG TABLET PO PRN (02:23)
[2019-05-22] MEDS: DEXAMETHASONE 4 MG/ML, 1ML IVPush SCH ×4 (02:23→21:11)
[2019-05-22] MEDS: PROMETHAZINE 25 MG/ML, 1ML IM PRN ×2 (04:22→21:16)
[2019-05-22] MEDS: morphine SULFATE 10 MG/ML, 1ML IVPush PRN ×4 (04:24→20:05)
[2019-05-22 04:35] LABS: BASOPHILS # (AUTO) 0.02 x10^3/uL (0-0.1); BASOPHILS % (AUTO) 0 % (0-1); EOSINOPHILS % (AUTO) 0 % (1-7); LYMPHOCYTES # (AUTO) 1.03 x10^3/uL (1-3.4); LYMPHOCYTES % (AUTO) 8 % (22-44); MD NO; MEAN CORPUSCULAR HEMOGLOBIN 29.4 pg (27.5-34.5); MEAN CORPUSCULAR VOLUME 89.2 fL (81-97); MEAN PLATELET VOLUME 7.6 fL (7.4-10.4); MONOCYTES # (AUTO) 0.31 x10^3/uL (0.2-0.8); MONOCYTES % (AUTO) 3 % (2-9); NEUTROPHILS # (AUTO) 10.98 x10^3/uL (1.8-6.8); NEUTROPHILS % (AUTO) 89 % (42-75); PLATELET COUNT 343 x10^3/uL (130-400); RED BLOOD COUNT 5.34 x10^6/uL (4.38-5.82); RED CELL DISTRIBUTION WIDTH 12.1 % (9.4-14.8)
[2019-05-22 04:46] LABS: ANION GAP 7 mmol/L (5-15); CHLORIDE 104 mmol/L (98-107)
[2019-05-22 04:47] LABS: CALCIUM 9.3 mg/dL (8.5-10.1); CREATININE 0.83 mg/dL (0.7-1.3)
[2019-05-22] MEDS: HYDROcodone/APAP 10/325 MG TABLET PO PRN ×3 (06:27→17:58)
[2019-05-22] MEDS: GUAIFENESIN 200 MG TABLET PO SCH ×2 (08:34→21:12)
[2019-05-22] MEDS: TIZANIDINE 4MG TABLET PO SCH ×3 (08:34→22:15)
[2019-05-22] MEDS: SENNA/DOCUSATE TABLET PO SCH (08:34)
[2019-05-22] MEDS: AZITHROMYCIN 500 MG TABLET PO SCH (08:35)
[2019-05-22] MEDS: VALPROATE SODIUM 500 MG in SODIUM CHLORIDE 0.9% 100 ML IV SCH ×3 (09:46→21:11)
[2019-05-22 14:53] VITALS: BP 139/91
[2019-05-22 19:52] VITALS: BP 120/71
[2019-05-22 21:00] VITALS: BP 128/76
[2019-05-22] MEDS: ZOLPIDEM 5MG TABLET PO SCH (21:11)
[2019-05-23 02:37] VITALS: BP 127/77
[2019-05-23] MEDS: DEXAMETHASONE 4 MG/ML, 1ML IVPush SCH ×3 (03:09→17:40)
[2019-05-23] MEDS: morphine SULFATE 10 MG/ML, 1ML IVPush PRN ×5 (03:09→21:26)
[2019-05-23] MEDS: VALPROATE SODIUM 500 MG in SODIUM CHLORIDE 0.9% 100 ML IV SCH ×3 (03:32→17:40)
[2019-05-23 05:43] LABS: BASOPHILS # (AUTO) 0.01 x10^3/uL (0-0.1); BASOPHILS % (AUTO) 0 % (0-1); EOSINOPHILS % (AUTO) 0 % (1-7); LYMPHOCYTES # (AUTO) 1.08 x10^3/uL (1-3.4); LYMPHOCYTES % (AUTO) 8 % (22-44); MD NO; MEAN CORPUSCULAR HGB CONC 33.6 g/dL (33.2-36.2); MEAN CORPUSCULAR VOLUME 89.3 fL (81-97); MEAN PLATELET VOLUME 7.3 fL (7.4-10.4); MONOCYTES # (AUTO) 0.27 x10^3/uL (0.2-0.8); MONOCYTES % (AUTO) 2 % (2-9); NEUTROPHILS # (AUTO) 12.03 x10^3/uL (1.8-6.8); NEUTROPHILS % (AUTO) 90 % (42-75); PLATELET COUNT 405 x10^3/uL (130-400); RED BLOOD COUNT 5.35 x10^6/uL (4.38-5.82); RED CELL DISTRIBUTION WIDTH 12.4 % (9.4-14.8)
[2019-05-23 05:53] LABS: ALBUMIN 3.3 g/dL (3.4-5.0); ANION GAP 10 mmol/L (5-15); CALCIUM 8.9 mg/dL (8.5-10.1); CHLORIDE 105 mmol/L (98-107)
[2019-05-23 05:56] LABS: ALANINE AMINOTRANSFERASE 83 U/L (12-78); ALKALINE PHOSPHATASE 47 U/L (45-117); BILIRUBIN,TOTAL 0.5 mg/dL (0.2-1.0); CREATININE 0.99 mg/dL (0.7-1.3); TOTAL PROTEIN 7.4 g/dL (6.4-8.2)
[2019-05-23 06:45] VITALS: BP 133/83
[2019-05-23] MEDS: GUAIFENESIN 200 MG TABLET PO SCH ×2 (10:15→21:25)
[2019-05-23] MEDS: SENNA/DOCUSATE TABLET PO SCH (10:16)
[2019-05-23] MEDS: HYDROcodone/APAP 10/325 MG TABLET PO PRN ×2 (10:16→19:31)
[2019-05-23] MEDS: TIZANIDINE 4MG TABLET PO SCH ×3 (10:16→21:25)
[2019-05-23] MEDS: PROMETHAZINE 25 MG/ML, 1ML IM PRN ×2 (10:17→19:30)
[2019-05-23 14:23] VITALS: BP 127/75
[2019-05-23 18:56] VITALS: BP 107/72
[2019-05-23] MEDS: ZOLPIDEM 5MG TABLET PO SCH (21:25)
[2019-05-24] MEDS: DEXAMETHASONE 4 MG/ML, 1ML IVPush SCH ×3 (00:12→12:28)
[2019-05-24] MEDS: VALPROATE SODIUM 500 MG in SODIUM CHLORIDE 0.9% 100 ML IV SCH ×3 (00:12→11:09)
[2019-05-24] MEDS: morphine SULFATE 10 MG/ML, 1ML IVPush PRN ×4 (00:24→14:28)
[2019-05-24 00:30] VITALS: BP 139/81
[2019-05-24] MEDS: PROMETHAZINE 25 MG/ML, 1ML IM PRN ×3 (03:05→16:02)
[2019-05-24] MEDS: HYDROcodone/APAP 10/325 MG TABLET PO PRN ×3 (03:06→16:03)
[2019-05-24] MEDS: CALCIUM CARBONATE 500 MG TAB.CHEW PO PRN (06:35)
[2019-05-24 07:01] VITALS: BP 135/78
[2019-05-24] MEDS: TIZANIDINE 4MG TABLET PO SCH ×2 (08:15→16:03)
[2019-05-24] MEDS: SENNA/DOCUSATE TABLET PO SCH (08:15)
[2019-05-24] MEDS: GUAIFENESIN 200 MG TABLET PO SCH (08:15)
[2019-05-24] MEDS: ACETAMINOPHEN 325 MG TABLET PO PRN ×2 (08:15→14:27)
[2019-05-24 12:12] VITALS: BP 126/70
[2019-05-24] MEDS ORDERED: DIVA500T4 PO (15:17)
[2019-05-24] MEDS ORDERED: DEXA4TAB PO (15:17)
[2019-05-24] MEDS ORDERED: FLU VACC QS2019-20 36MOS UP/PF 0.5 ML IM-VACC ONE (16:30)
[2019-05-24] MEDS ORDERED: DEXAMETHASONE 4 MG TABLET PO SCH (17:00)
[2019-05-24] MEDS ORDERED: DIVALPROEX 500 MG TAB.ER.24H PO SCH (21:00)
== END 2019-05-24 17:48 | disposition home or self-care (01) | DRG 853 ==
LOC: ED 23:29 → EDIP 23:43 → 4EST 05-16 00:34 → CCU 05-18 10:40 → 3N 05-22 14:45
PROVIDERS: ADMIT Family Medicine; ATTEND Internal Medicine
PROC: 009U3ZX Drainage of Spinal Canal, Percutaneous Approach, Diagnostic (ICD-10-PCS; 2019-05-17)
PROC: B01B1ZZ Fluoroscopy of Spinal Cord using Low Osmolar Contrast (ICD-10-PCS; 2019-05-17)
PROC: 009600Z Drainage of Cerebral Ventricle with Drainage Device, Open Approach (ICD-10-PCS; principal; 2019-05-18 11:00)
DX: A41.9 Sepsis, unspecified organism (principal); G03.9 Meningitis, unspecified; G92 Toxic encephalopathy; G93.6 Cerebral edema; G93.7 Reye's syndrome; J96.00 Acute respiratory failure, unspecified whether with hypoxia or hypercapnia; B15.9 Hepatitis A without hepatic coma; D63.8 Anemia in other chronic diseases classified elsewhere; E66.9 Obesity, unspecified; Z68.26 Body mass index [BMI] 26.0-26.9, adult; Z88.5 Allergy status to narcotic agent; Z88.8 Allergy status to other drugs, medicaments and biological substances; E83.51 Hypocalcemia; E88.09 Other disorders of plasma-protein metabolism, not elsewhere classified; F41.1 Generalized anxiety disorder; G43.909 Migraine, unspecified, not intractable, without status migrainosus; G47.30 Sleep apnea, unspecified; G89.29 Other chronic pain; J45.909 Unspecified asthma, uncomplicated; Z86.19 Personal history of other infectious and parasitic diseases; Z86.61 Personal history of infections of the central nervous system; Z90.49 Acquired absence of other specified parts of digestive tract; M54.9 Dorsalgia, unspecified; G93.2 Benign intracranial hypertension
CPT/HCPCS: 36415; 83986; 84145; 87400; 89051; 96361; 96365; 96375; 99291; J7620; S0020; 62328; 70450; 71045; 80048; 80053; 80074; 80307; 82140; 82550; 82945; 83540; 83550; 83605; 83735; 84100; 84157; 84443; 85025; 85610; 86738; 87040; 87070; 87081; 87205; 87529; 87633; 90686; 94640; C1729; G0378; J0133; J0171; J0456; J0690; J0696; J1100; J1644; J2405; J2550; J2704; J2710; J3010; J3370; Q0162; C1757; J0780; J1200; J2270; J3030; J7030; J7040; J7050

== ENCOUNTER 2019-12-11 22:37 | Emergency (ER) | payer OTHER ==
[~2019-12-11] VITALS: Ht 193 cm; Wt 101.2 kg
[~2019-12-11 22:37] MED LIST changes: +DEXA4TAB PO; +DIVA500T4 PO; +HYDR-3245 PO; -OXYC15TA PO; +OXYC15TA3 PO
[2019-12-11] MEDS ORDERED: DULO30CA2 PO (23:06)
--- NOTE | 2019-12-11 23:08 | NUR ---
pt with n/v/d x 1 week. also epigastric pain.
[2019-12-11] MEDS ORDERED: SODIUM CHLORIDE 0.9% 1,000ML IVBOLUS ONE (23:30)
[2019-12-11] MEDS ORDERED: ONDANSETRON 2MG/ML, 2ML IVPush ONE (23:30)
[2019-12-11] MEDS ORDERED: MORPHINE SULFATE 4 MG/ML, 1ML IVPush PRN (23:30)
[2019-12-11] MEDS ORDERED: SODIUM CHLORIDE FLUSH 10ML SYR IVF ONE (23:30)
[2019-12-11] MEDS ORDERED: ONDANSETRON 2MG/ML, 2ML ONE (23:54)
[2019-12-11] MEDS ORDERED: MORPHINE SULFATE 4 MG/ML, 1ML ONE (23:54)
[2019-12-11 23:58] VITALS: BP 135/79
[2019-12-12 00:02] LABS: BASOPHILS # (AUTO) 0.01 x10^3/uL (0-0.1); BASOPHILS % (AUTO) 0 % (0-1); EOSINOPHILS # (AUTO) 0.14 x10^3/uL (0-0.4); EOSINOPHILS % (AUTO) 2 % (1-7); LYMPHOCYTES # (AUTO) 1.15 x10^3/uL (1-3.4); LYMPHOCYTES % (AUTO) 20 % (22-44); MD NO; MEAN CORPUSCULAR HEMOGLOBIN 29.7 pg (27.5-34.5); MEAN CORPUSCULAR HGB CONC 33.2 g/dL (33.2-36.2); MEAN CORPUSCULAR VOLUME 89.5 fL (81-97); MEAN PLATELET VOLUME 7.6 fL (7.4-10.4); MONOCYTES # (AUTO) 0.33 x10^3/uL (0.2-0.8); MONOCYTES % (AUTO) 6 % (2-9); NEUTROPHILS # (AUTO) 4.16 x10^3/uL (1.8-6.8); NEUTROPHILS % (AUTO) 72 % (42-75); PLATELET COUNT 264 x10^3/uL (130-400); RED BLOOD COUNT 5.53 x10^6/uL (4.38-5.82); RED CELL DISTRIBUTION WIDTH 14.4 % (9.4-14.8)
[2019-12-12 00:09] LABS: ALANINE AMINOTRANSFERASE 53 U/L (12-78); ALBUMIN 4.6 g/dL (3.4-5.0); ANION GAP 8 mmol/L (5-15); CALCIUM 9.2 mg/dL (8.5-10.1); CHLORIDE 105 mmol/L (98-107); CREATININE 0.85 mg/dL (0.7-1.3)
[2019-12-12 00:11] LABS: ALKALINE PHOSPHATASE 52 U/L (45-117); BILIRUBIN,TOTAL 0.4 mg/dL (0.2-1.0); TOTAL PROTEIN 7.8 g/dL (6.4-8.2)
== END 2019-12-12 01:01 ==
LOC: ED 12-12 00:55
DX: J06.9 Acute upper respiratory infection, unspecified (principal); Z20.828 Contact with and (suspected) exposure to other viral communicable diseases; R05 Cough; R06.02 Shortness of breath; R00.0 Tachycardia, unspecified; R53.1 Weakness; R11.2 Nausea with vomiting, unspecified; R10.9 Unspecified abdominal pain; R19.7 Diarrhea, unspecified; G89.29 Other chronic pain; J45.909 Unspecified asthma, uncomplicated; Z90.89 Acquired absence of other organs; Z90.49 Acquired absence of other specified parts of digestive tract
CPT/HCPCS: 36415; 71045; 80053; 83605; 83690; 85025; 87040; 87635; 93005; 96361; 96374; 96375; 99285; J2270; J2405; J7030

== ENCOUNTER 2020-09-06 16:36 | Emergency (ER) | payer BC, OTHER ==
[~2020-09-06] VITALS: Ht 193 cm; Wt 100.0 kg
[~2020-09-06 16:36] MED LIST changes: +DULO30CA2 PO; -HYDR-3245 PO; +HYDR1TAB53 PO; +MIRT-38 PO; -MIRT30TA PO; -OXYC-307 PO; +OXYC-380 PO
--- NOTE | 2020-09-06 16:47 | NUR ---
PT BIBA. PER EMS PT HAD SEIZURE X2, PT STATES HE HAS A HX OF SEIZURES WITH UNKNOWN CAUSE. PT STATES HE FEELS VERY CONFUSED. PT RESTING IN GURNEY, EKG DONE, MONITORING IN PLACE, SEIZURE PRECAUTIONS IN PLACE, BED RAILS X2, NADN, WCTM. DR. ROMEO AT BEDSIDE.
[2020-09-06 17:10] LABS: BASOPHILS % (AUTO) 1 % (0-1); EOSINOPHILS % (AUTO) 6 % (1-7); LYMPHOCYTES % (AUTO) 25 % (22-44); MD NO; MEAN CORPUSCULAR HEMOGLOBIN 29.8 pg (27.5-34.5); MEAN PLATELET VOLUME 6.9 fL (7.4-10.4); MONOCYTES % (AUTO) 6 % (2-9); NEUTROPHILS % (AUTO) 62 % (42-75); PLATELET COUNT 420 x10^3/uL (130-400); RED BLOOD COUNT 4.98 x10^6/uL (4.38-5.82); RED CELL DISTRIBUTION WIDTH 12.5 % (9.4-14.8)
[2020-09-06 17:22] LABS: ALANINE AMINOTRANSFERASE 93 U/L (12-78); ALBUMIN 3.9 g/dL (3.4-5.0); ANION GAP 7 mmol/L (5-15); CHLORIDE 110 mmol/L (98-107); CREATININE 0.85 mg/dL (0.7-1.3)
[2020-09-06 17:24] LABS: ALKALINE PHOSPHATASE 95 U/L (45-117); BILIRUBIN,TOTAL 0.2 mg/dL (0.2-1.0)
[2020-09-06 17:56] VITALS: BP 96/62
== END 2020-09-06 18:53 | disposition home or self-care (01) ==
LOC: ED 18:47
DX: R56.9 Unspecified convulsions (principal); I10 Essential (primary) hypertension; R41.0 Disorientation, unspecified
CPT/HCPCS: 36415; 80053; 85025; 93005; 99284

== ENCOUNTER 2020-10-10 10:15 | Observation (INO) | payer BC ==
[~2020-10-10] VITALS: Ht 193 cm; Wt 101.0 kg
--- NOTE | 2020-10-10 10:43 | NUR ---
pt to room 4 from triage in a wheelchair.
--- NOTE | 2020-10-10 11:00 | NUR ---
SEIZURE PADS APPLIED.
--- NOTE | 2020-10-10 11:13 | NUR ---
PT EXPERIENCING SEIZURE-LIKE ACTIVITY. IS AWARE.
--- NOTE | 2020-10-10 11:47 | NUR ---
BLOOD SAMPLING UTILIZED, AND SAMPLE WALKED TO THE LAB FOR ANALYSIS.
[2020-10-10 11:57] LABS: BASOPHILS % (AUTO) 1 % (0-1); EOSINOPHILS % (AUTO) 3 % (1-7); LYMPHOCYTES % (AUTO) 21 % (22-44); MEAN CORPUSCULAR HEMOGLOBIN 29.5 pg (27.5-34.5); MEAN CORPUSCULAR HGB CONC 34.2 g/dL (33.2-36.2); MEAN PLATELET VOLUME 7.7 fL (7.4-10.4); MONOCYTES % (AUTO) 6 % (2-9); NEUTROPHILS % (AUTO) 70 % (42-75); PLATELET COUNT 388 x10^3/uL (130-400); RED BLOOD COUNT 4.94 x10^6/uL (4.38-5.82); RED CELL DISTRIBUTION WIDTH 12.9 % (9.4-14.8)
[2020-10-10 12:15] LABS: CALCIUM 9.4 mg/dL (8.5-10.1); CHLORIDE 108 mmol/L (98-107)
[2020-10-10 12:22] LABS: ALANINE AMINOTRANSFERASE 53 U/L (12-78); ALBUMIN 4.1 g/dL (3.4-5.0); ALKALINE PHOSPHATASE 79 U/L (45-117); ANION GAP 11 mmol/L (5-15); BILIRUBIN,TOTAL 0.4 mg/dL (0.2-1.0); CREATININE 0.94 mg/dL (0.7-1.3); TOTAL PROTEIN 8.1 g/dL (6.4-8.2)
--- NOTE | 2020-10-10 12:38 | NUR ---
PT SLEEPING ON AN E.R. GURNEY IN NO ACUTE DISTRESS
[2020-10-10] MEDS ORDERED: AMLO-211 PO (13:50)
[2020-10-10] MEDS ORDERED: ATOR40TA78 PO (13:50)
[2020-10-10] MEDS ORDERED: LEVE100020 PO (13:50)
[2020-10-10] MEDS ORDERED: SUMA50TA4 PO (13:50)
[2020-10-10] MEDS ORDERED: DEXL60CA2 PO (13:50)
[2020-10-10] MEDS ORDERED: METO25TA35 PO (13:50)
[2020-10-10] MEDS ORDERED: MORP-52 PO (13:50)
[2020-10-10] MEDS ORDERED: OXYC-380 PO (13:50)
[2020-10-10] MEDS ORDERED: DIAZ5TAB4 PO (13:50)
[2020-10-10] MEDS ORDERED: AMIT50TA PO (13:51)
[2020-10-10] MEDS ORDERED: LORazepam 2 MG/ML, 1ML IVPush PRN (15:00)
[2020-10-10] MEDS ORDERED: POLYETHYLENE GLYCOL 17 GM PACKET PO PRN (15:00)
--- NOTE | 2020-10-10 15:28 | NUR ---
AMELIA (RN) IS ASSUMING CARE OF THIS PT WHILE I HAVE A BREAK. SBAR WAS EXCHANGED AT THE BEDSIDE.
[2020-10-10] MEDS ORDERED: OXYcodone/APAP 10/325MG TABLET ONE (15:33)
[2020-10-10] MEDS: OXYcodone/APAP 10/325MG TABLET PO SCH ×2 (15:34→23:19)
--- NOTE | 2020-10-10 15:49 | NUR ---
Break RN: patient up to sitting position on the side of the bed to use the urinal. Patient became SOB and felt like his heart was racing. VS remained stable. Patient symptoms improved once back in bed.
--- NOTE | 2020-10-10 16:09 | NUR ---
Report given to GEMINI Adam. Patient to be transferred to room 486-2.
[2020-10-10] MEDS: TIZANIDINE 4MG TABLET PO SCH ×2 (17:01→21:00)
[2020-10-10 17:04] VITALS: BP 127/82
[2020-10-10 17:06] VITALS: BP 127/82
[2020-10-10] MEDS ORDERED: POTASSIUM CHLORIDE 20 MEQ TAB.ER.PRT PO ONE (18:30)
[2020-10-10 19:49] VITALS: BP 99/61
[2020-10-10] MEDS ORDERED: METOPROLOL TARTRATE 25 MG TAB PO SCH (21:00)
[2020-10-10] MEDS ORDERED: TIZANIDINE 2MG TABLET ONE (23:07)
[2020-10-10] MEDS: ONDANSETRON 2MG/ML, 2ML IVPush PRN (23:18)
[2020-10-10] MEDS: ZOLPIDEM 5MG TABLET PO SCH (23:19)
[2020-10-10] MEDS: LEVETIRACETAM 500 MG TABLET PO SCH (23:19)
[2020-10-10] MEDS: DIAZEPAM 5 MG TABLET PO SCH (23:20)
[2020-10-10] MEDS: ATORVASTATIN 40 MG TABLET PO SCH (23:20)
[2020-10-11 00:33] VITALS: BP 145/83
[2020-10-11] MEDS: MELATONIN 5 MG TABLET PO PRN (02:28)
[2020-10-11] MEDS: ONDANSETRON 2MG/ML, 2ML IVPush PRN ×2 (04:32→06:05)
[2020-10-11] MEDS: ACETAMINOPHEN 325 MG TABLET PO PRN (04:33)
[2020-10-11] MEDS: PANTOPRAZOLE 40MG TABLET PO SCH (05:45)
[2020-10-11 06:08] LABS: ALBUMIN 3.7 g/dL (3.4-5.0); ANION GAP 7 mmol/L (5-15); BASOPHILS % (AUTO) 1 % (0-1); CALCIUM 8.8 mg/dL (8.5-10.1); CHLORIDE 111 mmol/L (98-107); EOSINOPHILS % (AUTO) 5 % (1-7); LYMPHOCYTES % (AUTO) 33 % (22-44); MEAN CORPUSCULAR HGB CONC 33.6 g/dL (33.2-36.2); MEAN PLATELET VOLUME 7.1 fL (7.4-10.4); MONOCYTES % (AUTO) 8 % (2-9); NEUTROPHILS % (AUTO) 54 % (42-75); PLATELET COUNT 308 x10^3/uL (130-400); RED BLOOD COUNT 4.99 x10^6/uL (4.38-5.82); RED CELL DISTRIBUTION WIDTH 12.8 % (9.4-14.8)
[2020-10-11 06:11] LABS: ALANINE AMINOTRANSFERASE 50 U/L (12-78); ALKALINE PHOSPHATASE 72 U/L (45-117); BILIRUBIN,TOTAL 0.4 mg/dL (0.2-1.0); TOTAL PROTEIN 7.6 g/dL (6.4-8.2)
[2020-10-11 08:15] VITALS: BP 156/82
[2020-10-11] MEDS ORDERED: AMLODIPINE 10 MG TAB PO SCH (09:00)
[2020-10-11] MEDS: SENNA/DOCUSATE TABLET PO SCH (09:00)
[2020-10-11] MEDS: AMITRIPTYLINE 50 MG TABLET PO SCH (09:27)
[2020-10-11] MEDS: OXYcodone/APAP 10/325MG TABLET PO SCH ×3 (09:28→22:03)
[2020-10-11] MEDS: TIZANIDINE 4MG TABLET PO SCH ×3 (09:29→22:03)
[2020-10-11] MEDS: DIAZEPAM 5 MG TABLET PO SCH ×2 (10:40→22:02)
[2020-10-11] MEDS: LEVETIRACETAM 500 MG TABLET PO SCH (10:40)
[2020-10-11 14:01] VITALS: BP 102/67
[2020-10-11] MEDS: SUMATRIPTAN 50 MG TABLET PO PRN (14:13)
[2020-10-11 19:46] VITALS: BP 114/80
[2020-10-11] MEDS ORDERED: LEVETIRACETAM 500 MG TABLET PO SCH (21:00)
[2020-10-11] MEDS ORDERED: DOXYLAMINE 25MG TABLET PO SCH (21:00)
[2020-10-11] MEDS: ATORVASTATIN 40 MG TABLET PO SCH (22:02)
[2020-10-11] MEDS: ZOLPIDEM 5MG TABLET PO SCH (22:02)
[2020-10-12] MEDS: ACETAMINOPHEN 325 MG TABLET PO PRN (00:52)
[2020-10-12] MEDS: MELATONIN 5 MG TABLET PO PRN (00:52)
[2020-10-12] MEDS: SUMATRIPTAN 50 MG TABLET PO PRN (01:31)
[2020-10-12 01:38] VITALS: BP 105/71
[2020-10-12] MEDS: PANTOPRAZOLE 40MG TABLET PO SCH (06:33)
[2020-10-12 07:20] VITALS: BP 112/71
[2020-10-12] MEDS: TIZANIDINE 4MG TABLET PO SCH (08:58)
[2020-10-12] MEDS: OXYcodone/APAP 10/325MG TABLET PO SCH (08:59)
[2020-10-12] MEDS: DIAZEPAM 5 MG TABLET PO SCH (08:59)
[2020-10-12] MEDS: AMITRIPTYLINE 50 MG TABLET PO SCH (08:59)
[2020-10-12] MEDS ORDERED: LEVETIRACETAM 500 MG TABLET PO SCH (09:00)
[2020-10-12] MEDS: SENNA/DOCUSATE TABLET PO SCH (09:00)
[2020-10-12 13:05] VITALS: BP_SYST 111; BP_SYST 112; BP_SYST 115; BP_DIAS 74; BP_DIAS 77; BP_DIAS 88
[2020-10-12] MEDS ORDERED: LEVE100020 PO (14:36)
== END 2020-10-12 13:54 | disposition home or self-care (01) ==
LOC: ED 11:34 → EDIP 14:12 → INTOOBSV 14:12 → 4EST 16:27
PROVIDERS: ADMIT Internal Medicine; ATTEND Internal Medicine
DX: R55 Syncope and collapse (principal); G40.209 Localization-related (focal) (partial) symptomatic epilepsy and epileptic syndromes with complex partial seizures, not intractable, without status epilepticus; F39 Unspecified mood [affective] disorder; G89.29 Other chronic pain; M54.9 Dorsalgia, unspecified; R10.9 Unspecified abdominal pain; K21.9 Gastro-esophageal reflux disease without esophagitis; G43.909 Migraine, unspecified, not intractable, without status migrainosus; I10 Essential (primary) hypertension; F91.9 Conduct disorder, unspecified; G03.9 Meningitis, unspecified; G91.9 Hydrocephalus, unspecified; J45.909 Unspecified asthma, uncomplicated; F41.8 Other specified anxiety disorders; F11.20 Opioid dependence, uncomplicated; F13.20 Sedative, hypnotic or anxiolytic dependence, uncomplicated; Z86.61 Personal history of infections of the central nervous system; Z79.899 Other long term (current) drug therapy; Z90.49 Acquired absence of other specified parts of digestive tract; Z98.2 Presence of cerebrospinal fluid drainage device
CPT/HCPCS: 36415; 80053; 83605; 85025; 87040; 95816; 96374; 96376; 99284; G0378; J2405

== ENCOUNTER 2020-11-06 18:55 | Emergency (ER) | payer BC, MEDICAID ==
[~2020-11-06] VITALS: Ht 193 cm; Wt 100.0 kg
[~2020-11-06 18:55] MED LIST changes: +AMIT50TA PO; +AMLO-211 PO; +DEXL60CA2 PO; +DIAZ5TAB4 PO; +LEVE100020 PO; +METO25TA35 PO; +MORP-52 PO; +SUMA50TA4 PO
[2020-11-06] MEDS ORDERED: SODIUM CHLORIDE FLUSH 10ML SYR IVF ONE (22:30)
[2020-11-06] MEDS ORDERED: SODIUM CHLORIDE 0.9% 1,000ML IVBOLUS ONE (22:30)
[2020-11-06] MEDS ORDERED: ONDANSETRON 2MG/ML, 2ML IVPush ONE (22:30)
[2020-11-06 22:55] LABS: BASOPHILS % (AUTO) 1 % (0-1); EOSINOPHILS % (AUTO) 1 % (1-7); LYMPHOCYTES % (AUTO) 28 % (22-44); MEAN CORPUSCULAR HEMOGLOBIN 28.9 pg (27.5-34.5); MEAN CORPUSCULAR HGB CONC 33.4 g/dL (33.2-36.2); MEAN PLATELET VOLUME 7.3 fL (7.4-10.4); MONOCYTES % (AUTO) 7 % (2-9); NEUTROPHILS % (AUTO) 64 % (42-75); PLATELET COUNT 439 x10^3/uL (130-400); RED BLOOD COUNT 5.33 x10^6/uL (4.38-5.82); RED CELL DISTRIBUTION WIDTH 13.6 % (9.4-14.8)
[2020-11-06 22:57] LABS: ALBUMIN 4.8 g/dL (3.4-5.0); ANION GAP 7 mmol/L (5-15); CALCIUM 9.5 mg/dL (8.5-10.1); CHLORIDE 109 mmol/L (98-107)
[2020-11-06 23:02] LABS: CREATININE 0.88 mg/dL (0.7-1.3); TROPONIN I < 0.015 ng/mL (0.000-0.045)
--- NOTE | 2020-11-06 23:30 | NUR ---
pt to room from lobby. in c-spine collar.
[2020-11-06] MEDS ORDERED: ONDANSETRON 2MG/ML, 2ML ONE (23:47)
[2020-11-06] MEDS ORDERED: MORPHINE SULFATE 4 MG/ML, 1ML ONE (23:48)
--- NOTE | 2020-11-06 23:50 | NUR ---
pt to ct
[2020-11-06] MEDS: MORPHINE SULFATE 4 MG/ML, 1ML IVPush PRN (23:57)
--- NOTE | 2020-11-07 00:19 | NUR ---
PT GIVEN ICE PACKS FOR BACK PAIN.
[2020-11-07] MEDS ORDERED: MORPHINE SULFATE 4 MG/ML, 1ML ONE (01:13)
[2020-11-07 01:16] VITALS: BP 136/90
[2020-11-07] MEDS: MORPHINE SULFATE 4 MG/ML, 1ML IVPush PRN (01:17)
--- NOTE | 2020-11-07 01:35 | NUR ---
pt reports ice packs and pain medication hasn't worked for decreasing pain from 02/08
--- NOTE | 2020-11-07 02:46 | NUR ---
PT AMBULATORY TO [facility] DESK, WILL CALL [facility] FOR RIDE HOME
== END 2020-11-07 02:47 | disposition home or self-care (01) ==
LOC: ED 20:45
DX: S29.012A Strain of muscle and tendon of back wall of thorax, initial encounter (principal); S39.012A Strain of muscle, fascia and tendon of lower back, initial encounter; S16.1XXA Strain of muscle, fascia and tendon at neck level, initial encounter; R55 Syncope and collapse; R51.9 Headache, unspecified; R00.0 Tachycardia, unspecified; I10 Essential (primary) hypertension; J45.909 Unspecified asthma, uncomplicated; G89.29 Other chronic pain; Z90.89 Acquired absence of other organs; Z90.49 Acquired absence of other specified parts of digestive tract; W22.8XXA Striking against or struck by other objects, initial encounter; Y93.89 Activity, other specified; Y92.89 Other specified places as the place of occurrence of the external cause; Y99.8 Other external cause status
CPT/HCPCS: 36415; 70450; 71045; 72072; 72110; 72125; 80048; 82040; 84484; 85025; 93005; 96361; 96374; 96375; 96376; 99285; J2270; J2405; J7030

== ENCOUNTER 2020-11-28 05:20 | Emergency (ER) | payer MEDICAID ==
[~2020-11-28] VITALS: Ht 190.5 cm; Wt 100.0 kg
--- NOTE | 2020-11-28 05:20 | NUR ---
INITIAL PT CONTACT. PT PRESENTS TO ED VIA EMS C/O LEFT UPPER QUAD ABD PAIN, N/V/D X4 DAYS. 12.5MG PHENERGAN WITH EMS FOR NAUSEA, PER PT NO CHANGE IN NAUSEA FOLLOWING DIRECTOR GRAPHICS. PT SITTING UPRIGHT ON GURNEY, ANXIOUS, VSS. PT PLACED ON CONTINUOUS MONITORING. WARM BLANKET PROVIDED. CALL LIGHT AND PERSONAL BELONGINGS WITHIN REACH. AWAITING ERP.
--- NOTE | 2020-11-28 05:30 | NUR ---
PT ROOM AIR O2 SATURATION NOTED TO BE 89% ON ROOM AIR. PLACED ON 1.5L O2 VIA NASAL CANNULA, SATUATION IMPROVED TO 96%.
[2020-11-28] MEDS ORDERED: ONDANSETRON 2MG/ML, 2ML ONE (05:48)
[2020-11-28] MEDS ORDERED: MORPHINE SULFATE 4 MG/ML, 1ML ONE ×2 (05:49→06:19)
[2020-11-28] MEDS: MORPHINE SULFATE 4 MG/ML, 1ML IVPush PRN ×2 (05:54→06:30)
[2020-11-28] MEDS ORDERED: SODIUM CHLORIDE FLUSH 10ML SYR IVF ONE (06:00)
[2020-11-28] MEDS ORDERED: SODIUM CHLORIDE 0.9% 1,000 ML IV ONE (06:00)
[2020-11-28] MEDS ORDERED: ONDANSETRON 2MG/ML, 2ML IVPush ONE (06:00)
[2020-11-28] MEDS ORDERED: SODIUM CHLORIDE 0.9% 1,000ML IVBOLUS ONE (06:00)
[2020-11-28 06:10] LABS: BASOPHILS % (AUTO) 1 % (0-1); EOSINOPHILS % (AUTO) 2 % (1-7); LYMPHOCYTES % (AUTO) 24 % (22-44); MEAN CORPUSCULAR HEMOGLOBIN 28.2 pg (27.5-34.5); MEAN CORPUSCULAR HGB CONC 33.8 g/dL (33.2-36.2); MONOCYTES % (AUTO) 8 % (2-9); NEUTROPHILS % (AUTO) 65 % (42-75); PLATELET COUNT 413 x10^3/uL (130-400); RED BLOOD COUNT 5.41 x10^6/uL (4.38-5.82); RED CELL DISTRIBUTION WIDTH 13.6 % (9.4-14.8)
--- NOTE | 2020-11-28 06:15 | NUR ---
PT REPORTS INCREASED PAIN FOLLOWING XRAY, REQUESTING ADDITIONAL PAIN MEDICATION AT THIS TIME. WILL MEDICATE PER EMAR. NO ADDITIONAL NEEDS AT THIS TIME. CALL LIGHT AND PERSONAL BELONGINGS WITHIN REACH.
[2020-11-28 06:21] LABS: ALANINE AMINOTRANSFERASE 93 U/L (12-78); ALBUMIN 4.3 g/dL (3.4-5.0); ANION GAP 10 mmol/L (5-15); CALCIUM 9.5 mg/dL (8.5-10.1); CHLORIDE 105 mmol/L (98-107)
[2020-11-28 06:27] LABS: ALKALINE PHOSPHATASE 86 U/L (45-117); BILIRUBIN,TOTAL 0.6 mg/dL (0.2-1.0); CREATININE 0.78 mg/dL (0.7-1.3); TOTAL PROTEIN 8.1 g/dL (6.4-8.2); TROPONIN I < 0.015 ng/mL (0.000-0.045)
--- NOTE | 2020-11-28 06:45 | NUR ---
PT REQUESTING ADDITIONAL PAIN MEDICATION AT THIS TIME. ERP AWARE.
--- NOTE | 2020-11-28 06:52 | NUR ---
REPORT TO KACEY SINGLETARY
--- NOTE | 2020-11-28 07:07 | NUR ---
REPORT RECEIVED FROM AGNES RN, PT BACK FROM CT AT THIS TIME. PT A&O, RESPS EVEN AND UNLABORED, VSS, NADN. UA COLLECTED AND SENT TO LAB AT THIS TIME.
[2020-11-28] MEDS ORDERED: OMNIPAQUE 350 MG/ML, 100ML BOTTLE ONE (07:09)
[2020-11-28 07:31] LABS: MICROSCOPIC NOT IND
[2020-11-28 07:59] VITALS: BP 132/78
--- NOTE | 2020-11-28 08:08 | NUR ---
pt educated on discharge instructions, follow-up, and return criteria, verbalized understanding. pt states he will not be driving today post morphine admin. pt a&o, resps even and unlabored, vss, nadn. ambulatory to discharge desk with steady gait.
== END 2020-11-28 08:17 | disposition home or self-care (01) ==
LOC: ED 05:55
DX: R10.12 Left upper quadrant pain (principal); R11.2 Nausea with vomiting, unspecified; R19.7 Diarrhea, unspecified; R00.0 Tachycardia, unspecified
CPT/HCPCS: 36415; 71045; 74177; 80053; 81003; 83605; 83690; 84484; 85025; 87040; 93005; 96361; 96374; 96375; 96376; 99285; J2270; J2405; J7030; Q9967